=== PATIENT | male | born 1960 | race Caucasian/White ===

== ENCOUNTER → 2017-12-29 15:18 | Outpatient (CLI) | payer BC, SELFPAY ==
[2017-12-29 18:04] LABS: Absolute Lymphocyte Count 1.88 X10^3/ul (0.83-4.51); Absolute Neutrophil Count 2.8 X10^3/uL (2.0-7.7); Basophil# 0.07 X10^3/uL; Basophil% 1.2 % (0-1); Eosinophil# 0.46 X10^3/uL; Eosinophils% 8.1 % (0-5); Hematocrit 49.1 % (40-54); Lymphocyte # 1.88 X10^3/ul (4.0); Lymphocyte % 33.2 % (19-41); Mean Corp Hgb Conc 34.6 g/gl (32-36); Mean Corpuscular Hgb 31.5 pg (27.0-32.0); Mean Corpuscular Volume 91.1 fL (80-94); Mean Platelet Vol. 10.5 fl (6.2-12.0); Monocyte# 0.45 X10^3/uL; Neutrophil # 2.79 X10^3/uL (2.7-7.7); Neutrophil % 49.3 % (47-70); Platelet Count 140 K/mm3 (150-450); RBC Distribution Width SD 43.3 fl (35.1-43.9); Red Blood Count 5.39 M/mm3 (4.6-6.2); White Blood Count 5.7 K/mm3 (4.4-11.0)
[2017-12-29 18:22] LABS: Amphetamine Urine VISTA NEGATIVE (<1000 ng/mL); Barbiturate Urine VISTA NEGATIVE (< 200 ng/mL); Benzodiazepine Urine VISTA NEGATIVE (< 200 ng/mL); Cocaine Urine VISTA NEGATIVE (< 300 ng/mL); Ecstacy Urine VISTA NEGATIVE (< 500 ng/mL); Methadone Urine VISTA NEGATIVE (< 300 ng/mL); PCP Urine VISTA NEGATIVE (< 25 ng/mL); THC Urine VISTA NEGATIVE (< 50 ng/mL); Vista UDS pH Range 6
[2017-12-29 18:36] LABS: BUN 14 mg/dL (7-18); EST Glomerular Filtration Rate 82 mL/min (>60); Est Glom Filt Rate - Afr Amer 99 mL/min (>60); Glucose 139 mg/dL (74-106); Protein, Total 7.5 g/dL (6.4-8.2)
[2017-12-29 18:37] LABS: ALB/GLOB Ratio 1.2 RATIO (0.9-2.4); AST(SGOT) 24 U/L (15-37); Alanine Aminotransfer ALT/SGPT 52 U/L (16-61); Albumin, Serum 4.1 g/dL (3.2-5.0); Alkaline Phosphatase 57 U/L (45-117); Anion Gap 8 (5-15); Calcium,Total 8.9 mg/dL (8.5-10.1); Chloride 107 mmol/L (98-107); Cholesterol 220 mg/dL (200); Globulin 3.4 g/dL (2.2-4.2); High Density Lipoprotein 41 mg/dL; Potassium 4.1 mmol/L (3.5-5.1); Sodium Level 139 mmol/L (136-145); Triglycerides 256 mg/dL; Very Low Density Lipoprotein 51 mg/dL (5-40)
[2017-12-29 18:58] LABS: POSITIVE COUNT NO; POSITIVE DIFFERENTIAL NO; POSITIVE MORPHOLOGY NO
== END ==
PROVIDERS: Family Provider Family Medicine; PCP Family Medicine; Visit Provider Family Medicine
DX: I10 Essential (primary) hypertension (principal); E78.5 Hyperlipidemia, unspecified; Z51.81 Encounter for therapeutic drug level monitoring
CPT/HCPCS: 36415; 80053; 80061; 80307; 85025

== ENCOUNTER 2019-02-10 23:39 | Inpatient (IN) | payer BC, SELFPAY ==
[2019-02-10 23:40] VITALS: BP 219/205; PULSE 127; RESP 27; TEMP 37.1; O2SAT 92; BMI 36.5
[2019-02-10 23:45] VITALS: BP 219/205; PULSE 127; RESP 27; TEMP 37.1; O2SAT 92
[2019-02-10 23:48] VITALS: O2SAT 93
[2019-02-11] VITALS (73 sets, daily range): BP systolic 110–226; BP diastolic 43–128; PULSE 62–119; RESP 14–25; TEMP 36.7–37.2; O2SAT 89–99; BMI 34.8
--- NOTE | 2019-02-11 00:02 | EKG12_ITS ---
Test Reason : SOB Blood Pressure : / mmHG Vent. Rate : 112 BPM Atrial Rate : 112 BPM P-R Int : 142 ms QRS Dur : 096 ms QT Int : 364 ms P-R-T Axes : 025 -21 094 degrees QTc Int : 496 ms Sinus tachycardia Possible Left atrial enlargement Left ventricular hypertrophy Nonspecific ST/T Wave Abnormality Abnormal ECG Confirmed by DESHAWN GOEL, MANISHA ([id number]), sound editor FELIBERTO CHAND ([id number]) on 02/14/2019 2:06:10 PM Referred By: Marco Bro Confirmed By:MANISHA HESS MD
--- NOTE | 2019-02-11 00:08 | ED.VISSUMM ---
- ER Visit Summary Date of Service: 02/11/19 Chief Complaint: Shortness of breath History of Present Illness: The patient is a 58 M who presents with acute onset shortness of breath. This began about 1-2 hours before presentation while at rest. It severe. He also notes some recent cough with brown sputum. He has had some dyspnea on exertion. He quit smoking a few days ago. He has had some mild congestion runny nose although nothing bad. He denies any chest pain. He denies any edema. He has a history of elevated blood pressure but is noncompliant with medications because he states they make him feel dizzy. He denies fevers vomiting diarrhea. Physical Examination: Blood pressure 219/205, when repeated blood pressure 226/98, heart rate 127, respiratory rate 27, pulse ox 92% on room air Moist mucous membranes Heart regular tachycardia I do not appreciate murmur Patient has bilateral lower lung rales more so on the left, tachypneic with increased work of breathing Abdomen soft and nontender Patient has 2+ symmetric pitting edema Patient diaphoretic Test Results: EKG shows sinus rhythm at a rate of 112 when compared to prior there is slight ST depression in leads I and aVL as well as T wave inversions, T waves are flat from V4 through V6 which is also changed from prior. There are frequent PACs. Repeat EKG unchanged. Labs are notable for potassium 3.4, chloride 111. INR 1.1. Troponin 0 0.06, BNP 236. Chest x-ray shows CHF and pulmonary edema. Emergency Department Course and Treatment: Patient's presentation was concerning for acute congestive heart failure. He was given 3 sublingual nitroglycerin. He had significant improvement of symptoms. Blood pressure improved to about 180 systolic although is increasing again and most recent blood pressure was 200 systolic again. His laboratory studies as above showed minimal elevation of troponin as well as elevation of BNP and chest x-ray shows pulmonary edema. There is some asymmetry and pneumonia cannot be ruled out however his presentation is much more consistent with congestive heart failure. He has no fever. He has no leukocytosis. He reported pink sputum. Was given aspirin as well. He has been maintaining oxygen saturations on 4 L by nasal cannula. I spoke to Dr. Avila. He also recommended starting IV nitroglycerin, low-dose oral beta-kyle, IV heparin. Patient will be admitted to the ICU. I spoke to the hospitalist who agrees to admit. Treatment Plan: [] Disposition: Admit Impression: Acute congestive heart failure Hypertensive emergency This note was generated with teextee dictation software. It may contain incorrect words, spelling, and punctuation that were not noted in review of the chart prior to signing ED Disposition - Plan for ED Patient: Referrals: Marco Elizalde DO [Primary Care Provider] -
[2019-02-11 00:10] LABS: Absolute Lymphocyte Count 1.62 X10^3/ul (0.83-4.51); Absolute Neutrophil Count 5.5 X10^3/uL (2.0-7.7); Basophil# 0.05 X10^3/uL; Basophil% 0.6 % (0-1); Eosinophil# 0.35 X10^3/uL; Eosinophils% 4.4 % (0-5); Hematocrit 42.9 % (40-54); Hemoglobin 14.8 g/dl (13.0-16.5); Lymphocyte # 1.62 X10^3/ul (4.0); Lymphocyte % 20.4 % (19-41); Mean Corp Hgb Conc 34.5 g/gl (32-36); Mean Corpuscular Hgb 32.5 pg (27.0-32.0); Mean Corpuscular Volume 94.3 fL (80-94); Monocyte# 0.43 X10^3/uL; Monocyte% 5.4 % (0-10); Neutrophil % 69.1 % (47-70); POSITIVE COUNT NO; POSITIVE DIFFERENTIAL NO; POSITIVE MORPHOLOGY NO; Platelet Count 153 K/mm3 (150-450); RBC Distribution Width SD 45.4 fl (35.1-43.9); Red Blood Count 4.55 M/mm3 (4.6-6.2)
[2019-02-11] MEDS: Aspirin 81 MG TAB.CHEW 324 MG PO (00:13)
[2019-02-11 00:14] LABS: International Normalized Ratio 1.1; Prothrombin Time (Protime)PT. 13.8 SECONDS (11.7-14.9)
--- NOTE | 2019-02-11 00:15 | ED.RN ---
SPOKE WITH DR MAXWELL REFERENCE SEPSIS ALERT. NO CONCERNED FOR SEPSIS AT THIS TIME
--- NOTE | 2019-02-11 00:20 | RAD_ITS ---
STUDY: X-RAY CHEST REASON FOR EXAM: Male, 58 years old. Shortness of breath TECHNIQUE: Single frontal view of the chest. COMPARISON: None. FINDINGS: Cardiomegaly. Aortic calcifications. No pneumothorax or pleural effusion. Pulmonary vascular congestion/edema. There is asymmetric opacity within the left hilar and right lung base. There are diffuse degenerative changes of the visualized thoracic spine. Normal visualized ribs, clavicles, and shoulders. There is no demonstrated abnormality of the visualized soft tissue structures of the upper abdomen. RAD/Chest 1 View (Portable) IMPRESSION: Cardiomegaly with pulmonary vascular congestion/edema. There is asymmetric opacity within the right lung base and left suprahilar region. This could represent asymmetric edema however pneumonia cannot be excluded. Correlate with patient's symptomology follow-up to ensure resolution. Electronically Signed: Phil Fletcher, at 1:16 EDT Tel , Service support ,
[2019-02-11 00:23] LABS: Anion Gap 6 (5-15); BUN 11 mg/dL (7-18); BUN/Creat Ratio 10.8 RATIO (10-20); Calcium,Total 8.8 mg/dL (8.5-10.1); Chloride 111 mmol/L (98-107); Creatinine, Serum 1.02 mg/dL (0.70-1.30); EST Glomerular Filtration Rate 79 mL/min (>60); Est Glom Filt Rate - Afr Amer 96 mL/min (>60); Glucose 124 mg/dL (74-106); Potassium 3.4 mmol/L (3.5-5.1); Sodium Level 141 mmol/L (136-145)
--- NOTE | 2019-02-11 00:25 | EKG12_ITS ---
Test Reason : REPEAT Blood Pressure : / mmHG Vent. Rate : 111 BPM Atrial Rate : 111 BPM P-R Int : 134 ms QRS Dur : 084 ms QT Int : 364 ms P-R-T Axes : 022 -24 065 degrees QTc Int : 495 ms Sinus tachycardia with Premature atrial complexes Possible Left atrial enlargement Left ventricular hypertrophy Nonspecific ST/T Wave Abnormality Abnormal ECG Confirmed by DESHAWN GOEL, MANISHA ([id number]), news copy editor FELIBERTO CHAND ([id number]) on 02/14/2019 2:06:49 PM Referred By: Marco Bro Confirmed By:MANISHA HESS MD
[2019-02-11 00:36] LABS: BNP,B-Type NATRIURETIC PEPTIDE 236.2 pg/mL (0-100)
[2019-02-11] MEDS: Furosemide 40 MG/4 ML Vial IV ×4 (00:52→21:16)
--- NOTE | 2019-02-11 00:57 | ED.RN ---
DR HESS PAGED FOR DR MAXWELL
[2019-02-11] MEDS: Nitroglycerin Infusion 250 ML 3 MG CONT INF ×2 (02:06→18:45)
[2019-02-11 02:07] LABS: Partial Thromboplast Time 31.6 Seconds (24.1-36.2)
[2019-02-11] MEDS: Metoprolol Tartrate 25 MG Tablet PO ×2 (02:10→03:46)
[2019-02-11] MEDS: Heparin Injection (Vial) 5,000 UNIT/ML VIAL 10500 UNIT IV (02:11)
[2019-02-11] MEDS: HEPARIN/D5w 25,000 UNITS 25,000 UNITS/250 ML IV.SOLN. 17 UNITS IV (02:14)
--- NOTE | 2019-02-11 02:27 | HP.PCM_ITS ---
Problem List (1) Shortness of breath Status: Acute History of Present Illness Date of Admission: 02/11/19 Chief Complaint: Shortness of breath The patient is a 58 year old M was seen in the emergency room at [facility] with chief complaint of shortness of breath which started approximately a week ago, patient stopped smoking last Thursday thinking it was related to his smoking, however, his shortness of breath increased last night and he came to the emergency room for evaluation. Patient's past medical history includes hypertension-he stopped his blood pressure medications several months ago. He states initially he was on lisinopril but became dizzy and then they change his blood pressure medicine to another blood pressure medication but he eventually stopped taking it. Patient denies any chest pain, denies any fevers, chills, or purulent sputum production (patient states he chronically brings up brown sputum due to his smoking). Evaluation in the emergency room included a chest x-ray which showed bilateral infiltrates indicative of pulmonary edema given the patient's history. Patient required oxygen 2 L via nasal cannula to maintain his pulse ox above 90, CBC revealed a normal white blood cell count and hemoglobin, chemistry panel was remarkable for potassium of 3.4, chloride of 111, and glucose of 124. Patient's troponin was elevated at 0.066, beta natruretic peptide was elevated at 236.2. Patient's EKG showed a normal sinus rhythm with frequent PACs, no evidence of ischemic changes was noted on the EKG The emergency room physician contacted cardiology who requested the patient receive a beta-kyle, IV heparin, and IV nitroglycerin. Patient will be admitted to ICU for hypertensive emergency, hypoxia, pulmonary edema, and non- STEMI. 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 Psychiatric History: No pertinent psych hx Lives: Alone Smoking Status: Former smoker Tobacco Use: Cigarettes Alcohol: Rare Drugs: None - *Family History Maternal History Items: Cancer - Lymphoma Paternal History Items: - - Congestive heart failure-etiology unknown Review of Systems Constitutional: Denies: Anorexia, Chills, Fever, Night Sweats, Malaise, Weakness, Weight Change, Fatigue Eyes: Denies: Cataracts, Conjunctivae Inflammation, Double vision, Drainage HEENT: Denies: Difficulty Swallowing, Dysphasia, Ear Pain, Eye Pain, Hearing Changes, Nasal bleeding, Nasal Congestion, Post Nasal Drip Cardiovascular: Denies: Chest Pain, Claudication, Chest Pressure, Chest Tightness, Edema, Heaviness, Light Headedness, Orthopnea, Palpitations, Paroxysmal Noc. Dyspnea, Syncope Respiratory: Reports: Shortness of Breath, Shortness of breath at rest, Shortness of breath upon exertion, Sputum production. Denies: Cough, Hemoptysis, Pleuritic Pain, Wheezing Gastrointestinal: Denies: Abdominal Pain, Constipation, Diarrhea, Hematemesis, Hematochezia, Nausea, Melena, Vomiting Genitourinary: Denies: Dysuria, Frequency, Hematuria, Hesitancy, Incontinence, Nocturia, Urgency Musculoskeletal: Denies: Back Pain, Foot Pain, Hand Pain, Joint Pain, Joint stiffness, Joint swelling, Joint Tenderness, Leg Pain Skin: Denies: Dryness, Jaundice, Pruritis, Rash, Wounds Neurological: Denies: Blurred vision, Double vision, Change in Speech, Slurred speech, Difficulty swallowing, Focal weakness, Headaches, Incoordination, Numbness, Tingling Psychiatric: Denies: Anxiety, Depression, Homicidal Ideations, Suicidal Ideations Endocrine: Denies: Change in Body Habitus, Heat/ Cold Intolerance, Polydipsia, Polyuria Hematologic/ Lymphatic: Denies: Adenopathy, Anemia, Easy Bruising, Easy Bleeding, Petechiae, Purpura VTE Information - Inpt Only VTE Present on Admission: No VTE Mechan Device Prophylaxis: None VTE Pharm Prophylaxis ordered?: No Reason prophylaxis not ordered:: Medical Contraindication - Patient will be fully anticoagulated with IV heparin Patient Problems: Active and Suspected Problems Shortness of breath (Acute) - Physical Exam General: Alert, Oriented x3, Cooperative, No apparent distress, Well developed, Well nourished HEENT: Atraumatic, PERRLA, EOMI, Normocephalic Oral: Moist Mucosa Neck: Supple, No JVD, Negative Carotid Bruits, No Nuchal Rigidity, Trachea Midline, Thyroid Normal Size and Texture Lungs: Normal air movement, No rhonchi, No wheeze, Diminished, Rales - Inspiratory rales are noted at the bases bilaterally Cardiovascular: Normal S1, Normal S2, No murmurs, PMI Normal, Irregular Rate - PACs are noted on the monitor, - - Frequent PACs are noted Abdomen: Bowel Sounds Present, Soft, Non Tender, Non-Distended, Obese Extremities: No clubbing, No cyanosis, Capillary Refill Less than 3 Seconds, Edema - Generalized edema is noted in the lower legs and ankle areas, there is also some generalized edema over the patient's back Skin: No rashes, No breakdown Musculoskeletal: No Tenderness to Palpation of Joints or Extremities Neurological: Cranial nerves II-XII grossly intact, Neuro grossly intact, Sensory exam intact to light touch and pain, Coordination normal Psych/Mental Status: Normal Affect, Appropriate, Alert and oriented to time, place, person, mood and affect Vital Signs Temp Pulse Resp BP Pulse Ox 98.7 F 98 27 H 185/90 H 90 02/10/19 23:45 02/11/19 02:06 02/10/19 23:45 02/11/19 02:06 02/11/19 00:05 Oxygen Flow Rate (L/min) 2 Oxygen Delivery Method Nasal Cannula Weight: 132.5 kg Body Mass Index (BMI) 36.5 Intake and Output for Last 24 Hours 02/09/19 02/10/19 02/11/19 23:59 23:59 23:59 Output Total 600 / 600 Balance -600 / -600 Laboratory Tests Past 24 Hrs 02/10/19 02/10/19 02/10/19 23:45 23:45 23:45 WBC 8.0 RBC 4.55 L Hgb 14.8 Hct 42.9 MCV 94.3 H MCH 32.5 H MCHC 34.5 RDW 14.0 RDW Differential 45.4 H Plt Count 153 MPV 10.0 Immature Gran % (Auto) 0.100 Neut % (Auto) 69.1 Lymph % (Auto) 20.4 [place] % (Auto) 5.4 Eos % (Auto) 4.4 Baso % (Auto) 0.6 Absolute Neuts (auto) 5.5 Absolute Lymphs (auto) 1.62 Total Counted Not Reportable PT 13.8 INR 1.1 APTT Sodium 141 Potassium 3.4 L Chloride 111 H Carbon Dioxide 24.0 Anion Gap 6 BUN 11 Creatinine 1.02 Estim Creat Clear Calc 93.20 Est GFR (MDRD) Af Amer 96 Est GFR (MDRD) Non-Af 79 BUN/Creatinine Ratio 10.8 Glucose 124 H Calcium 8.8 Troponin I 0.066 H B-Natriuretic Peptide 02/10/19 02/10/19 23:45 23:45 WBC RBC Hgb Hct MCV MCH MCHC RDW RDW Differential Plt Count MPV Immature Gran % (Auto) Neut % (Auto) Lymph % (Auto) [place] % (Auto) Eos % (Auto) Baso % (Auto) Absolute Neuts (auto) Absolute Lymphs (auto) Total Counted PT INR APTT 31.6 Sodium Potassium Chloride Carbon Dioxide Anion Gap BUN Creatinine Estim Creat Clear Calc Est GFR (MDRD) Af Amer Est GFR (MDRD) Non-Af BUN/Creatinine Ratio Glucose Calcium Troponin I B-Natriuretic Peptide 236.2 H Assessment/Plan All Active Problems Shortness of breath (Acute) #1 hypertensive emergency-patient will be admitted to ICU, he will be seen in consultation by cardiology, blood pressure medications will be administered, cardiology request patient be placed on a nitroglycerin drip #2 pulmonary edema secondary to #1-patient will be placed on IV Lasix #3 uncontrolled hypertension secondary to noncompliance with medications #4 [id number] will be cycled, patient will have an echocardiogram, cardiology requested patient be placed on heparin drip #5 hypokalemia-patient will be placed on potassium supplementation #6 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
--- NOTE | 2019-02-11 02:36 | ECHOCS_ITS ---
Reason For Study: CHF Procedure This was a 2D Doppler, Color Flow transthoracic echocardiogram. The study was technically difficult. Contrast injection was performed. Exam performed portable in ICU/CCU. Left Ventricle Normal LV size. Moderate concentric left ventricular hypertrophy. Left ventricular systolic function is normal. The estimated ejection fraction is 60 %. Diastolic function is indeterminate. No regional wall motion abnormalities noted. Right Ventricle Normal RV size. Normal systolic function. Atria The left atrium is mildly enlarged. Normal right atrium. No doppler evidence for ASD. Mitral Valve There is no mitral annular calcification. Normal mitral valve. Trivial mitral valve insufficiency. Tricuspid Valve Normal tricuspid valve. Trivial tricuspid valve insufficiency. Right ventricular systolic pressure estimated to be 21 mmHg. Aortic Valve Trisinus/trileaflet aortic valve. Moderate focal aortic valve calcification. Mild (1+) eccentric aortic valve insufficiency. Pulmonic Valve The pulmonic valve is not well visualized. Trivial pulmonic valve insufficiency. Great Vessels Normal sized aortic root. Pericardium/Pleural No pericardial effusion. Medication Diluted definity 5.5ml given slow IV push to enhance endocardial definition. MMode/2D Measurements & Calculations LVIDd: 5.0 cm IVSd: 1.5 cm LVOT diam: 2.5 cm LVIDs: 3.2 cm LVPWd: 1.6 cm FS: 36.4 % LVOT area: 5.1 cm2 Ao root diam: 3.8 cm LAV(MOD-bp): 83.1 ml LA A4 area: 23.9 cm2 LAV(MOD-bp) Indexed: 32.9 ml/m2 LAV(MOD-sp2): 86.0 ml LAV(MOD-sp4): 80.6 ml RA A4 area: 16.4 cm2 Time Measurements MV dec time: 0.25 sec Doppler Measurements & Calculations MV E max connor: 90.9 cm/sec Lat Peak E' Connor: 7.2 cm/sec Med Peak E' Connor: 5.5 cm/sec MV A max connor: 68.5 cm/sec E/E' lat: 12.7 E/E' med: 16.6 MV E/A: 1.3 MV V2 max: 96.4 cm/sec MV P1/2t max connor: 95.8 cm/sec Ao V2 max: 233.3 cm/sec MV max P.7 mmHg MV P1/2t: 78.3 msec Ao max P.8 mmHg MV V2 mean: 64.0 cm/sec MV dec slope: 358.2 cm/sec2 Ao V2 mean: 155.8 cm/sec MV mean P.8 mmHg Ao mean P.1 mmHg MV V2 VTI: 24.7 cm MVA(P1/2t): 2.8 cm2 Ao V2 VTI: 39.9 cm MVA(VTI): 3.9 cm2 CONG(I,D): 2.4 cm2 OCNG(V,D): 2.0 cm2 LV V1 max: 92.4 cm/sec SV(LVOT): 95.9 ml PA V2 max: 83.8 cm/sec LV V1 max P.4 mmHg LV V1 mean P.9 mmHg LV V1 mean: 65.0 cm/sec LV V1 VTI: 18.9 cm TR max connor: 212.9 cm/sec TR max P.1 mmHg Interpretation Summary The study was technically difficult. Contrast injection was performed. Left ventricular systolic function is normal. The estimated ejection fraction is 60 %. Moderate concentric left ventricular hypertrophy. The left atrium is mildly enlarged. Trivial mitral valve insufficiency. Trivial tricuspid valve insufficiency. Moderate focal aortic valve calcification. Mild (1+) eccentric aortic valve insufficiency. Trivial pulmonic valve insufficiency. Right ventricular systolic pressure estimated to be 21 mmHg. Diastolic function is indeterminate. Ordering Physician: Marco Bro Referring Physician: Marco Bro Performed By: Chuck Pierson RCS
[2019-02-11] MEDS: Losartan Potassium 25 MG Tablet PO (03:46)
[2019-02-11] MEDS: oxyCODONE 5 MG Tablet 10 MG PO ×4 (03:49→22:47)
[2019-02-11] MEDS: 0.9% NaCl Peripheral Flush Adult/Peds IV ×2 (05:35→07:52)
[2019-02-11 06:09] LABS: Absolute Lymphocyte Count 1.77 X10^3/ul (0.83-4.51); Absolute Neutrophil Count 5.8 X10^3/uL (2.0-7.7); Basophil# 0.03 X10^3/uL; Basophil% 0.4 % (0-1); Eosinophil# 0.18 X10^3/uL; Eosinophils% 2.2 % (0-5); Hematocrit 44.6 % (40-54); Hemoglobin 15.4 g/dl (13.0-16.5); Lymphocyte # 1.77 X10^3/ul (4.0); Lymphocyte % 21.7 % (19-41); Mean Corp Hgb Conc 34.5 g/gl (32-36); Mean Corpuscular Hgb 32.2 pg (27.0-32.0); Mean Corpuscular Volume 93.1 fL (80-94); Mean Platelet Vol. 9.8 fl (6.2-12.0); Monocyte# 0.41 X10^3/uL; Neutrophil # 5.75 X10^3/uL (2.7-7.7); Neutrophil % 70.5 % (47-70); Platelet Count 177 K/mm3 (150-450); RBC Distribution Width CV 13.9 % (11.6-14.6); RBC Distribution Width SD 45.4 fl (35.1-43.9); Red Blood Count 4.79 M/mm3 (4.6-6.2); White Blood Count 8.2 K/mm3 (4.4-11.0)
--- NOTE | 2019-02-11 06:10 | EKG12_ITS ---
Test Reason : AM Blood Pressure : / mmHG Vent. Rate : 078 BPM Atrial Rate : 078 BPM P-R Int : 144 ms QRS Dur : 092 ms QT Int : 514 ms P-R-T Axes : 033 -17 126 degrees QTc Int : 585 ms Sinus rhythm with Blocked Premature atrial complexes Left ventricular hypertrophy T wave abnormality, consider anterolateral ischemia Prolonged QT Abnormal ECG Confirmed by DESHAWN GOEL, MANISHA ([id number]), electronic news gathering editor FELIBERTO CHAND ([id number]) on 02/21/2019 12:08:08 PM Referred By: Marco Bro Confirmed By:MANISHA HESS MD
[2019-02-11 06:20] LABS: POSITIVE COUNT NO; POSITIVE DIFFERENTIAL NO; POSITIVE MORPHOLOGY NO
--- NOTE | 2019-02-11 06:44 | RAD_ITS ---
STUDY: X-RAY CHEST REASON FOR EXAM: Male, 58 years old. Shortness of breath/dyspnea. TECHNIQUE: Single AP portable view of the chest. COMPARISON: Comparison is made with prior study dated February 11, 2019 at 12:24 AM. FINDINGS: EKG electrodes are seen. There is been some clearing of the bilateral airspace disease. Residual changes persist. There is no demonstrated pleural abnormality. There is mild cardiac enlargement. Normal mediastinum and german. Normal visualized pulmonary arteries. There is atherosclerotic calcification of the aortic arch with tortuosity. There are diffuse degenerative changes of the visualized thoracic spine. Normal visualized ribs, clavicles, and shoulders. There is no demonstrated abnormality of the visualized soft tissue structures of the upper abdomen. RAD/Chest 1 View (Portable) IMPRESSION: Improved aeration of both lungs. Further follow-up is recommended. Electronically Signed: Gilberto Lund, at 8:18 EDT , Service support ,
--- NOTE | 2019-02-11 06:45 | PCM.PN.HOSP ---
Patient Problems: Active and Suspected Problems Shortness of breath (Acute) Hypertensive emergency (Acute) Pulmonary edema (Acute) Abnormal cardiac enzyme level (Acute) Subjective: Patient notes feeling improved since initial presentation with less dyspnea, less coughing but does have a headache with nitroglycerin. His blood pressures on current regimen have improved. Cardiology evaluation with planned cardiac catheterization and pending renal ultrasound. Again discussed these plans of care and current plan for continued diuresis to which patient is amenable. He reconfirmed that he has had no chest discomfort, arm discomfort, shoulder discomfort or jaw discomfort. Patient denies fevers, chills, nausea, emesis, abdominal pain. Objective: Physical Examination: General: awake, alert, oriented x 3 and cooperative, seated upright in the CVICU bed, notes being improved since initial presentation, mild dyspnea currently but not severe as it was. Skin: normal color, turgor, no icterus, cyanosis. HEENT: AT/NC, EOMI, PERRLA, MMM, no carotid bruits, currently difficult to assess JVD secondary to thickened neck. Lungs: Diminished breath sounds, greater bases, still mild rales present bases, no rhonchi or wheezing. Heart: Regular rate and rhythm; no gallop, rub audible. Abdomen: soft, obese, NTTP, ND, normal BS. Extremities: no cyanosis, clubbing, bilateral lower extremity ankle nonpitting edema. Neurological: patient awake, alert, oriented x 3; cognitive function intact; pupils equally reactive to light and accomodation; cranial nerves II-XII grossly normal, moving all 4 extremities, no focal deficits, strength moderately to severely globally decreased secondary to acute presentation. Psychiatric: affect appears normal, no acute evidence of depressive or anxiety feelings. Vitals/I&O's: Vital Signs Temp Pulse Resp BP Pulse Ox 98.1 F 90 20 H 201/100 H 93 02/11/19 02:50 02/11/19 06:30 02/11/19 06:00 02/11/19 06:30 02/11/19 06:00 Oxygen Flow Rate (L/min) 2 Oxygen Delivery Method Room Air Weight: 278 lb 10.629 oz Body Mass Index (BMI) 34.8 Intake and Output for Last 24 Hours 02/09/19 02/10/19 02/11/19 23:59 23:59 23:59 Intake Total 114.6 / 114.6 Output Total 1525 / 1525 Balance -1410.4 / -1410.4 Laboratory Results 02/10/19 23:45: WBC 8.0, RBC 4.55 L, Hgb 14.8, Hct 42.9, MCV 94.3 H, MCH 32.5 H, MCHC 34.5, RDW 14.0, RDW Differential 45.4 H, Plt Count 153, MPV 10.0, Immature Gran % (Auto) 0.100, Neut % (Auto) 69.1, Lymph % (Auto) 20.4, [place] % (Auto) 5.4, Eos % (Auto) 4.4, Baso % (Auto) 0.6, Absolute Neuts (auto) 5.5, Absolute Lymphs (auto) 1.62, Total Counted Not Reportable 02/10/19 23:45: PT 13.8, INR 1.1 02/10/19 23:45: Sodium 141, Potassium 3.4 L, Chloride 111 H, Carbon Dioxide 24.0, Anion Gap 6, BUN 11, Creatinine 1.02, Estim Creat Clear Calc 93.20, Est GFR (MDRD) Af Amer 96, Est GFR (MDRD) Non-Af 79, BUN/Creatinine Ratio 10.8, Glucose 124 H, Calcium 8.8, Troponin I 0.066 H 02/10/19 23:45: B-Natriuretic Peptide 236.2 H 02/10/19 23:45: APTT 31.6 02/11/19 03:15: Troponin I 0.117 H 02/11/19 06:00: Troponin I 0.111 H 02/11/19 06:00: WBC 8.2, RBC 4.79, Hgb 15.4, Hct 44.6, MCV 93.1, MCH 32.2 H, MCHC 34.5, RDW 13.9, RDW Differential 45.4 H, Plt Count 177, MPV 9.8, Immature Gran % (Auto) 0.200, Neut % (Auto) 70.5 H, Lymph % (Auto) 21.7, [place] % (Auto) 5.0, Eos % (Auto) 2.2, Baso % (Auto) 0.4, Absolute Neuts (auto) 5.8, Absolute Lymphs (auto) 1.77, Total Counted Not Reportable Current Medications Furosemide (Lasix) 40 mg IV Q8 VIDYA Last Admin: 02/11/19 05:35 Dose: 40 mg Heparin Sodium (Porcine) (Heparin Na) 0 unit IV UD PRN; Protocol Heparin Sodium/Dextrose () 25,000 units in 250 mls @ 17 mls/hr IV .[id number] VIDYA; Protocol Last Admin: 02/11/19 02:14 Dose: 17 mls/hr Sodium Chloride () 250 mls @ 15 mls/hr IV .[id number] PRN PRN Reason: SALINE FLUSH Nitroglycerin/Dextrose () 250 mls @ 3 mls/hr CONT INF .[id number] [facility] Losartan Potassium (Cozaar) 50 mg PO BID [facility] Metoprolol Tartrate (Lopressor (Beta Sourav)) 50 mg PO BID VIDYA Nitroglycerin (Nitrostat) 0.4 mg SUBLINGUAL PRN PRN PRN Reason: CARDIAC/CHEST PAIN Last Admin: 02/11/19 00:16 Dose: 0.4 mg Oxycodone HCl (Oxyir) 10 mg PO Q6H PRN PRN PRN Reason: SEVERE PAIN (6-10/10) Last Admin: 02/11/19 03:49 Dose: 10 mg Potassium [facility]Dur[facility] Sodium Chloride () 5 - 15 ml IV UD PRN PRN Reason: SALINE FLUSH Last Admin: 02/11/19 05:35 Dose: 15 ml Medical Necessity - Tobacco Use Smoking Status: Former smoker Tobacco Use: Cigarettes Assessment/Plan All Active Problems Shortness of breath (Acute) Hypertensive emergency (Acute) Pulmonary edema (Acute) Abnormal cardiac enzyme level (Acute) The patient is a 58 y/o M w/ PMHx: Tobacco use recently quitting, Obesity who presents to the [facility] ED on 02/11/19 with history of ongoing dyspnea, progressively worsening over the last week, severely and abruptly increase the evening before prompting ED presentation with notably concurrent elevated blood pressure upon ED presentation. (1) Hypertensive Emergency: Work-up in the ED included T 98.7, heart rate 127, BP 219/25, respiratory rate 27, 92% on room air, unremarkable CBC, unremarkable coags, BMP with potassium 3.4, chloride 111, glucose 124, troponin 0.066, BNP 236.2, EKG with no acute evidence of ischemia, chest x-ray with cardiomegaly with pulmonary vascular congestion. The ED patient administered IV Lasix and initiated on nitroglycerin drip per cardiology request. Admitted to the ICU, maintain on IV diuresis, continued on nitroglycerin drip with titration parameters per cardiology, maintain on heparin drip, cardiac enzymes trended v0.066-->0.117-->0.111, serial EKGs, FLP w/ TG 134, TChol 174, LDL 108, VLDL 27, HDL 39, Renal artery duplex US requested, ECHO requested. Continued on metoprolol, losartan. (2) Pulmonary Edema secondary to #1: Chest x-ray with cardiomegaly and pulmonary vascular congestion secondary to hypertensive emergency presentation, repeat chest x-ray following IV diuresis overnight with improved aeration, continued on IV Lasix diuresis. Echocardiogram pending. (3) NSTEMI: ED evaluation w/ troponin 0.066, BNP 236.2, EKG with no acute evidence of ischemia, chest x-ray with cardiomegaly with pulmonary vascular congestion. Continued on telemetry, continued on nitroglycerin drip with titration parameters per cardiology, maintained on heparin drip, cardiac enzymes trended v0.066-->0.117-->0.111, serial EKGs, FLP w/ TG 134, TChol 174, LDL 108, VLDL 27, HDL 39, planned cardiac catheterization, ECHO requested. Patient loaded with ASA, Brilinta, maintained on initiated metoprolol, losartan. (3) Hypokalemia: Admission K+ 3.4, supplementation given, repeat level in AM. (4) Hyperglycemia: Glucose 124, will obtain hemoglobin A1c. (5) Obesity: Weight loss and lifestyle changes encouraged, nutrition consulted. (6) Tobacco Abuse: Encouraged cessation, inpatient consultation per RT, NR if desired. (&) DVT Prophylaxis: SCDs, heparin drip. Code Visit Procedures: Other Procedure - See Report - Admitted after midnight, billin
[2019-02-11 07:02] LABS: Magnesium 1.9 mg/dL (1.6-2.6)
[2019-02-11 07:06] LABS: Cholesterol 174 mg/dL (200); High Density Lipoprotein 39 mg/dL; Triglycerides 134 mg/dL; Very Low Density Lipoprotein 27 mg/dL (5-40)
[2019-02-11] MEDS: Metoprolol Tartrate 50 MG Tablet PO ×2 (07:51→21:17)
[2019-02-11] MEDS: Losartan Potassium 50 MG Tablet PO ×2 (07:51→21:16)
--- NOTE | 2019-02-11 08:03 | RDU_ITS ---
Reason For Study: HTN Right Renal Artery Left Renal Artery Right renal artery ostium 152/38 Left renal artery ostium 132/30 RSV/EDV. PSV/EDV. Right renal artery proximal 241/65 Left renal artery proximal PSV/EDV PSV/EDV. 138/22 . Right renal artery mid 293/65 Left renal artery mid 110/32 PSV/EDV. PSV/EDV . Right renal artery distal 87/25 Left renal artery distal 84/21 PSV/EDV. PSV/EDV. Right RAR 4.31. Left RAR 2.03. Right Renal Parenchyma Left Renal Parenchyma Upper Pole Medula 29/8 PSV/EDV. Left upper pole medulla 58/17 Right upper pole medulla EDR 0.28 . PSV/EDV . Right upper pole medulla R.I. Left upper pole medulla EDR 0.29 . 0.72 . Left upper pole medulla R.I. 0.71 . Upper Kaveh Cortx 25/5 PSV/EDV. UP Cortex 36/9 PSV/EDV. Right upper pole cortex EDR 0.20 . Left upper pole cortex EDR 0.25 . Right upper pole cortex R.I. 0.80 . Left upper pole cortex R.I. 0.75 . Right lower Pole medulla 30/9 Left lower Pole medulla 33/7 PSV/EDV . PSV/EDV . Right lower pole medulla EDR 0.30 . Left lower pole medulla EDR 0.21 . Right lower pole medulla R.I. Left lower pole medulla R.I. 0.79 . 0.68 . Lower Pole Cortx 26/8 PSV/EDV. Lower Pole Cortex 25/8 PSV/EDV. Left lower pole cortex EDR 0.31 . Right lower pole cortex EDR 0.32 . Left lower pole cortex R.I. 0.69 . Right lower pole cortex R.I. 0.70 . Left Renal Hilar Right Renal Hilar LT Hilar avg 62/15 PSV/EDV . Right Hilar avg 92/23 PSV/EDV. Left Renal Dimensions Right Renal Dimensions Left kidney size 13.0 cm . Right kidney size 13.90 cm . Left cortical dimension 1.73 cm . Right cortical dimension 1.64 cm . Aorta Proximal abdominal aorta 2.02cmx 2.23 cm . Proximal abdominal aorta peak systolic velocity is 68 cm/sec . Distal abdominal aorta 1.66cm x 1.80 cm . Distal abdominal aorta peak systolic velocity is 130 cm/sec . Procedures Technically difficult due to bowel gas. Interpretation Summary Normal aortic diameter 2 x 2.23cm and normal flow >60% stenosis right proximal/mid renal artery. Right renal length 13.9cm <60% stenosis left renal artery Left renal length 13cm Ordering Physician: Nickolas Avila Referring Physician: Marco Elizalde Performed By: Nena Jacobsen, DENNIS, RVT
--- NOTE | 2019-02-11 08:07 | PCM.CONS.C ---
Problem List (1) Hypertensive emergency Status: Acute (2) Pulmonary edema Status: Acute (3) Abnormal cardiac enzyme level Status: Acute Reason for Consult Date of Consultation: 02/11/19 History of Present Illness: The patient is a 58 year old male with a past medical history of hypertension, hyperlipidemia, who presents for evaluation of a hypertensive urgency/emergency, pulmonary edema, and subsequent abnormal cardiac enzyme levels. He states he has been diagnosed with hypertension in the past. He has attempted different medications 1 of which is included an LUIS ANGEL inhibitor/HCTZ combination agent which he did not tolerate secondary to dizziness . He states he was tried on another agent which he believes he may have tolerated but due to financial reasons could not afford. He subsequently discontinued his medications. Thus his hypertension has been untreated. He believes he is also been diagnosed with hyperlipidemia but does not recall being on medical management. He does not recall any other cardiovascular history. He notes recently he has been more short of breath and dyspneic. He states yesterday evening it became very prominent and he could not lie supine and breathe comfortably. Thus he summoned the EMS to be brought to the hospital for further evaluation. In the emergency department, according to the emergency department staff, he was thought to have evidence of a hypertensive urgency/emergency with associated pulmonary edema. He was treated with nitroglycerin sublingual tablets as well as IV diuretics. He was subsequently evaluated and found to have indeterminate troponin I levels. An ECG was performed that demonstrated sinus rhythm. He appeared to have PACs. There was possible left atrial enlargement. There was voltage criteria for LVH based upon lead aVL. He had nonspecific ST and T wave abnormality. A chest x-ray was performed which suggested findings compatible with pulmonary edema. He was subsequently placed in the ICU where he was receiving IV nitroglycerin and IV heparin as well as other oral agents such as aspirin, beta-blockers, and ARB's. He has remained hypertensive. He has had increased diuresis. He states his breathing has markedly improved. He has gone from requiring O2 nasal cannula supplements to being on room air. A follow-up chest x-ray has been performed which demonstrated improvement in his pulmonary edema. Additional noninvasive studies are pending at this time. He does note a sensation of chest discomfort that went along with his shortness of breath and dyspnea. He has not had nausea, emesis, or diaphoresis. Is been no report of near syncope or syncope. He states he was unaware he had any lower extremity peripheral pitting edema until he was informed by the emergency department staff. 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 Denies: PND, Palpitations, Lightheadedness, Dizziness, Near Syncope, Syncope Respiratory: Reports: Shortness of Breath. Denies: Cough, Sputum Production, Hemoptysis Gastrointestinal: Denies: Hematemesis, Hematochezia, Melena Genitourinary: Denies: Dysuria, Hematuria Skin: Denies: Rash Subjectve: Is a 58-year-old white male who appears to be resting comfortably at the moment in no acute distress. Objective: Vital Signs Temp Pulse Resp BP Pulse Ox 98.6 F 83 18 159/79 H 94 02/11/19 07:45 02/11/19 08:00 02/11/19 08:00 02/11/19 08:00 02/11/19 08:00 Oxygen Flow Rate (L/min) 2 Oxygen Delivery Method Room Air Weight: 278 lb 10.629 oz Body Mass Index (BMI) 34.8 Intake and Output for Last 24 Hours 02/09/19 02/10/19 02/11/19 23:59 23:59 23:59 Intake Total 114.6 / 114.6 Output Total 1525 / 1525 Balance -1410.4 / -1410.4 General: Awake, Alert, Oriented x 3, Cooperative, No Acute Distress HEENT: Atraumatic, Normocephalic, PERRL, EOMI, Sclera Non Icteric Oral: Moist Mucosa Neck: Supple, Good ROM, No JVD Lungs: Diminished Fernando Bases Cardiovascular: Regular Rhythm, Premature Ectopic Beats, Normal S1, Normal S2 Vascular: No Carotid Bruits Abdomen: Bowel Sounds Present, Soft, Non Tender Extremities: Trace RLE Edema, Trace LLE Edema Neurological: No Focal Motor or Sensory Deficit Psych/Mental Status: Appropriate 02/10/19 23:45: WBC 8.0, RBC 4.55 L, Hgb 14.8, Hct 42.9, MCV 94.3 H, MCH 32.5 H, MCHC 34.5, RDW 14.0, RDW Differential 45.4 H, Plt Count 153, MPV 10.0, Immature Gran % (Auto) 0.100, Neut % (Auto) 69.1, Lymph % (Auto) 20.4, [place] % (Auto) 5.4, Eos % (Auto) 4.4, Baso % (Auto) 0.6, Absolute Neuts (auto) 5.5, Total Counted Not Reportable 02/10/19 23:45: PT 13.8, INR 1.1 02/10/19 23:45: Sodium 141, Potassium 3.4 L, Chloride 111 H, Carbon Dioxide 24.0, Anion Gap 6, BUN 11, Creatinine 1.02, Est GFR (MDRD) Af Amer 96, Est GFR (MDRD) Non-Af 79, BUN/Creatinine Ratio 10.8, Glucose 124 H, Calcium 8.8, Troponin I 0.066 H 02/10/19 23:45: B-Natriuretic Peptide 236.2 H 02/10/19 23:45: APTT 31.6 02/11/19 03:15: Troponin I 0.117 H 02/11/19 06:00: Troponin I 0.111 H 02/11/19 06:00: WBC 8.2, RBC 4.79, Hgb 15.4, Hct 44.6, MCV 93.1, MCH 32.2 H, MCHC 34.5, RDW 13.9, RDW Differential 45.4 H, Plt Count 177, MPV 9.8, Immature Gran % (Auto) 0.200, Neut % (Auto) 70.5 H, Lymph % (Auto) 21.7, [place] % (Auto) 5.0, Eos % (Auto) 2.2, Baso % (Auto) 0.4, Absolute Neuts (auto) 5.8, Total Counted Not Reportable 02/11/19 06:00: Triglycerides 134, Cholesterol 174, LDL Cholesterol 108, VLDL Cholesterol 27, HDL Cholesterol 39 L 02/11/19 06:00: Magnesium 1.9 Rhythm: Sinus rhythm; PACs EKG: As noted above ECHO: Pending CXR: As noted above Assessment/Plan 1. Hypertensive urgency/emergency The patient appears to be symptomatically improved compared to his emergency department presentation. His blood pressure remains elevated. He continues with IV nitroglycerin at this time while oral antihypertensive agents are initiated. Hopefully over time his blood pressure will improve and his IV nitroglycerin can be decreased and discontinued. He will continue evaluation for his hypertension. It would not be unreasonable based upon his history to evaluate him for any obvious secondary issues. This could include any concerns of renal artery involvement. Thus would be reasonable to perform a renal artery duplex study to screen for any obvious renal artery involvement. An echocardiogram has also been requested to evaluate his left ventricular wall motion, thickness, and overall systolic function. 2. Pulmonary edema The patient was noted to have concerns of shortness of breath/dyspnea, require O2 nasal cannula, and have examination findings and chest x-ray findings compatible pulmonary edema. This may be secondary to his hypertensive urgency/emergency. Thus he has been treated for his underlying hypertension. He is also been treated for his pulmonary edema with IV diuretic therapy. He has had increased diuresis. His symptoms and examination have improved. He is now on room air. His follow-up chest x-ray demonstrates improvement as well. He will continue his evaluation. This will include a noninvasive study with an echocardiogram to evaluate his left ventricular wall motion and thickness and overall systolic function. He will continue medical management in the interim. 3. Abnormal cardiac enzymes His cardiac enzymes are indeterminate. This may be a secondary event based upon his hypertensive urgency/emergency. However the same time he does have cardiovascular risk factors. Thus underlying CAD is not necessarily been excluded. As his clinical course progresses he should be considered for further evaluation for underlying CAD. Based upon his clinical scenario this would include diagnostic cardiac catheterization. Procedure risks have been discussed with him. He is agreeable to this approach. Comment: The patient's case has been previously discussed and reviewed with the [facility] emergency department staff. This note was generated with HEMINGWAYation software. It may contain incorrect words, spelling, and punctuation that were not noted in checking the note before signing.
--- NOTE | 2019-02-11 09:28 | CASEMGMT ---
Assessment- SW met with patient. Introduced self and role at [facility]. Patient in agreement with SW completing assessment. Living situation- Patient lives alone in a 2- story home with a few entry steps. PCP: Dr Marco Elizalde Specialists: None Pharmacy: [facility] DME: [facility]. Has an old CPAP that he does not use ADL's/IADL's: Independent in all adl?s Past SNF/rehab: None Past HH: None LW: No. But would like to do this visit POA: No. But would like to do this visit Plan: Patient plans on returning home at d/c with no needs. He wants to talk with his family before completing HCPOA and HCLW. SW told him to ask for SW and we can help him complete documents. Ilene COYLE TROMBONE SLIDE ASSEMBLER
[2019-02-11 10:01] LABS: Hemoglobin A1c 5.4 % (4.2-6.3)
--- NOTE | 2019-02-11 10:04 | CASEMGMT ---
According to the [facility] website, the following are in-network tertiary facilities: [facility], [facility], [facility], [facility], [facility], [facility], [facility], [facility], [facility], and . Molly BARORW CM
[2019-02-11] MEDS: TICAGRELOR 90 MG TABLET 180 MG PO (10:08)
--- NOTE | 2019-02-11 12:37 | CASEMGMT ---
Assessment- SW met with patient. Introduced self and role at [facility]. Patient in agreement with SW completing assessment. Living situation- Patient lives with his parents in a 3 story home. PCP: Dr Gt Centeno Specialists: Dr Rosa Peter Do- Product Development Assistant with [facility] Pharmacy: [facility] DME: None ADL's/IADL's: Independent in all adl?s Past SNF/rehab: None Past HH: None LW: No. POA: No. Plan: Patient plans on returning home at d/c with no needs. Patient did have a hospitalization in the past where he was set up with outpatient IV antibiotics. SW told patient that if he were to need IV antibiotics at production technologist CM will help set this up. He said Dr Morales said he is hoping that after being in hospital for a few days on IV antibiotics he won't need outpatient I V antibiotics. RN CM to follow for d/c needs. Ilene COYLE DOCK CLERK
[2019-02-11] MEDS: amLODIPine 5 MG Tablet PO (14:45)
--- NOTE | 2019-02-11 14:45 | CL.D_ITS ---
Patient Name: SNEHA JEFFRIES Study Date: 02/11/2019 Performing: Nickolas Avila MD Ht: 75 inches 191 cm : 1960 Wt: 278.1 lbs 126 kg Age: 58 Gender: male BSA: 2.53 Amended PROCEDURE(S) PERFORMED QS13-DZL/COR/LV [id number] RENAL ANGIO WITH HEART CATH CLINICAL PROFILE AND INDICATIONS Indications: Suspected CAD Heart Failure: Newly Diagnosed: Yes, Heart Failure Type: Diastolic, NYHA Class: 4 Stress/Imaging Stress/Image Study Performed: No Angina Classification Anginal Classification w/in 2 Weeks: CCS IV CAD Presentations: Other: Pulmonary Edema CONCLUSIONS Elevated Left Ventricular End Diastolic Pressure Normal LV size, wall motion,and systolic function LVEF: by LV gram 65 % RCA: Proximal: 25% eccentric appearing stenosis which s/p removal of the coronary catheter and subseq uent reevaluation s/p completion of the LCA films, LV gram, and abdominal aortogram, was noted to hav e resolved, thus 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 Abdominal aorta: bilateral renal arteries: patent with no angiographically significant peripheral art erial occlusive disease RECOMMENDATIONS Risk factor modification Medical therapy DESCRIPTION OF PROCEDURE The patient arrived to the procedure lab. The risks and benefits of the procedure as well as a full d escription of our services here and current unavailability of surgical backup were fully explained to the patient and/or their significant other prior to the catheterization. The Timeout was completed, verifying the correct patient and procedure. The patient's procedural site was prepped and draped in the usual fashion. Local anesthetic was given subcutaneously to right radial region with Lidocaine 2% . Using a modified Seldinger technique, arterial access was obtained via the right radial artery, a 6 Fr sheath was inserted. Right Coronary Artery selective angiography was performed in multiple views using a 5 Fr. 4.0 [place] catheter. Left Coronary Artery selective angiography was performed in multipl e views using a 5 Fr. 4.0 [place] catheter. Left Ventriculography was performed in RAM projection using a 5 Fr. [place] catheter. LV to AO pullback pressures were then recorded. Left renal selective angiography was then performed in single view. Right renal selective angiography was then p erformed in single view. Right Coronary Artery selective angiography was then performed in multiple v iews using a 5 Fr. 4.0 [place] catheter.The arterial sheath was pulled and a TR Band was applied for he mostasis CORONARY ANGIOGRAPHY DOMINANCE: Right Dominant LEFT HEART ASSESSMENT Left Ventricular Ejection Fraction: by LV Gram 65 % Normal LV wall motion Elevated Left Ventricular End Diastolic Pressure LVEDP: 25 mmHg LEFT MAIN: Angiographically normal LEFT ANTERIOR DECENDING ARTERY: Mild luminal irregularities PROX LAD: Eccentric: 10 - 25 % Stenosis CIRCUMFLEX ARTERY: Mild luminal irregularities RIGHT CORONARY ARTERY: Mild luminal irregularities VALVE FINDINGS: Normal Aortic Valve function Normal Mitral Valve function AORTIC ROOT: Angiographically normal COMPLICATIONS No Complications PROCEDURE MEDICATIONS Fentanyl 50 mcg IV Versed 1 mg IV Fentanyl 50 mcg IV Versed 1 mg IV Oxygen: 2 L/min via nasal cannula Heparin diluted in 23cc Heparinized saline. Patient given 10cc IA of this solution. 02/11/2019 13:39: 22 Nitro drip running at 30mcg/min ^FreeText^ 02/11/2019 13:17:22 Verapamil 2.5mg, Ntg 100mcgs, 2000 units of Heparin diluted in 23cc Heparinized saline. Patient give n 10cc IA of this solution. 02/11/2019 13:39:22 SUMMARY OF HEMODYNAMIC DATA Time AIR REST ECG 13:18:42 AO 135/61 (95) SA 13:38:48 LV 164/5, 26 13:47:21 LV 159/5, 25 13:47:27 LV 158/2, 23 13:49:03 LV 166/5, 27 13:49:09 LVp 173/9, 29 13:49:13 AOp 162/78 (113) 13:49:18 Signed By Nickolas Avila MD On 02/11/2019 14:44:35 Nickolas Avila MD
[2019-02-11] MEDS: 0.9% Normal Saline 1,000 ML 50 ML IV (15:06)
[2019-02-11] MEDS: hydrALAZINE 20 MG/ML Vial 10 MG IV (17:30)
[2019-02-11] MEDS: ALPRAZolam 0.5 MG Tablet PO (21:14)
[2019-02-11] MEDS: hydrALAZINE 25 MG Tablet PO (21:15)
[2019-02-11] MEDS: Atorvastatin Calcium 20 MG Tablet PO (21:16)
[2019-02-12] VITALS (31 sets, daily range): BP systolic 103–177; BP diastolic 34–77; PULSE 65–95; RESP 12–23; TEMP 36.3–37.1; O2SAT 93–98
[2019-02-12 04:56] LABS: Absolute Lymphocyte Count 1.75 X10^3/ul (0.83-4.51); Absolute Neutrophil Count 5.9 X10^3/uL (2.0-7.7); Basophil# 0.02 X10^3/uL; Basophil% 0.2 % (0-1); Eosinophil# 0.26 X10^3/uL; Hematocrit 41.7 % (40-54); Hemoglobin 14.6 g/dl (13.0-16.5); Lymphocyte # 1.75 X10^3/ul (4.0); Lymphocyte % 20.5 % (19-41); Mean Corpuscular Hgb 31.6 pg (27.0-32.0); Mean Corpuscular Volume 90.3 fL (80-94); Mean Platelet Vol. 9.5 fl (6.2-12.0); Monocyte# 0.59 X10^3/uL; Monocyte% 6.9 % (0-10); Neutrophil # 5.91 X10^3/uL (2.7-7.7); Neutrophil % 69.3 % (47-70); Platelet Count 186 K/mm3 (150-450); RBC Distribution Width CV 13.6 % (11.6-14.6); RBC Distribution Width SD 44.4 fl (35.1-43.9); Red Blood Count 4.62 M/mm3 (4.6-6.2); White Blood Count 8.5 K/mm3 (4.4-11.0)
[2019-02-12] MEDS: oxyCODONE 5 MG Tablet 10 MG PO ×3 (04:57→17:48)
[2019-02-12 04:59] LABS: POSITIVE COUNT NO; POSITIVE DIFFERENTIAL NO; POSITIVE MORPHOLOGY NO
[2019-02-12] MEDS: Furosemide 40 MG/4 ML Vial IV (05:00)
[2019-02-12] MEDS: hydrALAZINE 25 MG Tablet PO ×3 (05:00→21:08)
[2019-02-12 05:30] LABS: Anion Gap 9 (5-15); BUN 12 mg/dL (7-18); BUN/Creat Ratio 12.2 RATIO (10-20); Calcium,Total 8.7 mg/dL (8.5-10.1); Chloride 107 mmol/L (98-107); Creatinine, Serum 0.98 mg/dL (0.70-1.30); EST Glomerular Filtration Rate 83 mL/min (>60); Est Glom Filt Rate - Afr Amer 100 mL/min (>60); Glucose 126 mg/dL (74-106); Potassium 2.7 mmol/L (3.5-5.1); Sodium Level 143 mmol/L (136-145)
--- NOTE | 2019-02-12 05:55 | RAD_ITS ---
STUDY: X-RAY CHEST REASON FOR EXAM: Male, 58 years old. Acute congestive heart failure TECHNIQUE: AP COMPARISON: Previous day FINDINGS: EKG leads project over the chest. Improved aeration of the lungs since the prior study with diminished vascular congestion and interstitial thickening. There is no demonstrated pleural abnormality. There is borderline cardiomegaly. Normal mediastinum and german. Normal visualized pulmonary arteries. Normal visualized aortic arch and descending thoracic aorta. No acute bony process. There is no demonstrated abnormality of the visualized soft tissue structures of the upper abdomen. RAD/Chest 1 View (Portable) IMPRESSION: Favorable change. Resolving CHF/fluid overload. Electronically Signed: Kadeem Jiménez MD at 12:36 EDT , Service support ,
--- NOTE | 2019-02-12 05:55 | EKG12_ITS ---
Test Reason : HTN Blood Pressure : / mmHG Vent. Rate : 075 BPM Atrial Rate : 075 BPM P-R Int : 146 ms QRS Dur : 090 ms QT Int : 418 ms P-R-T Axes : 021 -20 023 degrees QTc Int : 466 ms Normal sinus rhythm with sinus arrhythmia Left ventricular hypertrophy Nonspecific T wave abnormality Prolonged QT Abnormal ECG Confirmed by DESHAWN GOEL, MANISHA ([id number]), editorial clerk FELIBERTO CHAND ([id number]) on 02/21/2019 12:12:12 PM Referred By: Marco Bro Confirmed By:MANISHA HESS MD
--- NOTE | 2019-02-12 06:58 | PCM.PN.HOSP ---
Patient Problems: Active and Suspected Problems Shortness of breath (Acute) Hypertensive emergency (Acute) Pulmonary edema (Acute) Abnormal cardiac enzyme level (Acute) Subjective: Patient with no acute events overnight per self and per nursing report. Patient denies any further market dyspnea but states he still is coughing, mildly white phlegm. He notes no edema and activity tolerance has markedly improved. He denies any ongoing headache since nitroglycerin discontinuation. Discussed current evaluation with cardiac catheterization, renal ultrasound and echocardiogram review. Noted that cardiology would reevaluate with transition from IV Lasix to oral regimen in addition to new oral regimen with BP now improved to 150s over 60s. Patient denies fevers, chills, nausea, emesis, abdominal pain, chest pain or recurrent dyspnea. Objective: Physical Examination: General: awake, alert, oriented x 3 and cooperative, seated upright in the CVICU bed, NAD, resolved prior dyspnea and headache. Skin: normal color, turgor, no icterus, cyanosis. HEENT: AT/NC, EOMI, PERRLA, MMM. Lungs: Diminished breath sounds, greater bases, still mild rales present bases, no rhonchi or wheezing. Heart: Regular rate and rhythm; no gallop, rub audible. Abdomen: soft, obese, NTTP, ND, normal BS. Extremities: no cyanosis, clubbing, resolved LE edema. Neurological: patient awake, alert, oriented x 3; cognitive function intact; pupils equally reactive to light and accomodation; cranial nerves II-XII grossly normal, moving all 4 extremities, no focal deficits, strength improved, mildly to moderately globally decreased. Psychiatric: affect appears normal, no acute evidence of depressive or anxiety feelings. Vitals/I&O's: Vital Signs Temp Pulse Resp BP Pulse Ox 98.7 F 79 18 156/76 H 96 02/12/19 06:00 02/12/19 06:00 02/12/19 06:00 02/12/19 06:00 02/12/19 06:00 Oxygen Flow Rate (L/min) 2 Oxygen Delivery Method Nasal Cannula Weight: 269 lb 10.005 oz Body Mass Index (BMI) 34.8 Intake and Output for Last 24 Hours 02/10/19 02/11/19 02/12/19 23:59 23:59 23:59 Intake Total 839.6 / 839.6 856 / 856 Output Total 6275 / 6275 2350 / 2350 Balance -5435.4 / -5435.4 -1494 / -1494 Laboratory Results 02/11/19 06:00: Triglycerides 134, Cholesterol 174, LDL Cholesterol 108, VLDL Cholesterol 27, HDL Cholesterol 39 L 02/11/19 06:00: Magnesium 1.9 02/11/19 06:00: Hemoglobin A1c 5.4 02/12/19 04:53: WBC 8.5, RBC 4.62, Hgb 14.6, Hct 41.7, MCV 90.3, MCH 31.6, MCHC 35.0, RDW 13.6, RDW Differential 44.4 H, Plt Count 186, MPV 9.5, Immature Gran % (Auto) 0.100, Neut % (Auto) 69.3, Lymph % (Auto) 20.5, [place] % (Auto) 6.9, Eos % (Auto) 3.0, Baso % (Auto) 0.2, Absolute Neuts (auto) 5.9, Absolute Lymphs (auto) 1.75, Total Counted Not Reportable 02/12/19 04:53: Sodium 143, Potassium 2.7 L*, Chloride 107, Carbon Dioxide 27.0, Anion Gap 9, BUN 12, Creatinine 0.98, Estim Creat Clear Calc 97.00, Est GFR (MDRD) Af Amer 100, Est GFR (MDRD) Non-Af 83, BUN/Creatinine Ratio 12.2, Glucose 126 H, Calcium 8.7 Current Medications Alprazolam (Xanax) 0.5 mg PO QHS PRN PRN PRN Reason: SLEEP Last Admin: 02/11/19 21:14 Dose: 0.5 mg Amlodipine Besylate (Norvasc) 10 mg PO DAILY [facility] Aspirin (Aspirin, Baby) 81 mg PO DAILY@0800 [facility] Atorvastatin Calcium (Lipitor) 20 mg PO QHS [facility] Last Admin: 02/11/19 21:16 Dose: 20 mg Furosemide (Lasix) 40 mg IV Q8 [facility] Last Admin: 02/12/19 05:00 Dose: 40 mg Heparin Sodium (Porcine) (Heparin Na) 0 unit IV UD PRN; Protocol Hydralazine HCl (Apresoline) 25 mg PO TID [facility] Last Admin: 02/12/19 05:00 Dose: 25 mg Sodium Chloride () 250 mls @ 15 mls/hr IV .[id number] PRN PRN Reason: SALINE FLUSH Nitroglycerin/Dextrose () 250 mls @ 3 mls/hr CONT INF .[id number] [facility] Last Admin: 02/11/19 18:45 Dose: 3 mls/hr Sodium Chloride () 1,000 mls @ 15 mls/hr IV .Q48H [facility] Last Admin: 02/11/19 15:32 Dose: Not Given Losartan Potassium (Cozaar) 50 mg PO BID [facility] Last Admin: 02/11/19 21:16 Dose: 50 mg Metoprolol Tartrate (Lopressor (Beta Sourav)) 50 mg PO BID [facility] Last Admin: 02/11/19 21:17 Dose: 50 mg Nitroglycerin (Nitrostat) 0.4 mg SUBLINGUAL PRN PRN PRN Reason: CARDIAC/CHEST PAIN Last Admin: 02/11/19 00:16 Dose: 0.4 mg Oxycodone HCl (Oxyir) 10 mg PO Q6H PRN PRN PRN Reason: SEVERE PAIN (6-10/10) Last Admin: 02/12/19 04:57 Dose: 10 mg [facility] Last Admin: 02/11/19 16:42 Dose: 20 meq Sodium Chloride () 5 - 15 ml IV UD PRN PRN Reason: SALINE FLUSH Last Admin: 02/11/19 07:52 Dose: 10 ml Medical Necessity - Tobacco Use Smoking Status: Former smoker Tobacco Use: Cigarettes Assessment/Plan All Active Problems Shortness of breath (Acute) Hypertensive emergency (Acute) Pulmonary edema (Acute) Abnormal cardiac enzyme level (Acute) The patient is a 58 y/o M w/ PMHx: Tobacco use recently quitting, Obesity who presents to the [facility] ED on 02/11/19 with history of ongoing dyspnea, progressively worsening over the last week, severely and abruptly increase the evening before prompting ED presentation with notably concurrent elevated blood pressure upon ED presentation. (1) Hypertensive Emergency: Work-up in the ED included T 98.7, heart rate 127, BP 219/25, respiratory rate 27, 92% on room air, unremarkable CBC, unremarkable coags, BMP with potassium 3.4, chloride 111, glucose 124, troponin 0.066, BNP 236.2, EKG with no acute evidence of ischemia, chest x-ray with cardiomegaly with pulmonary vascular congestion. The ED patient administered IV Lasix and initiated on nitroglycerin drip per cardiology request. Admitted to the ICU, maintain on IV diuresis, placed initially on nitroglycerin drip, heparin drip. Cardiac enzymes trended 0.066-->0.117-->0.111, serial EKGs, FLP w/ TG 134, TChol 174, LDL 108, VLDL 27, HDL 39. Cardiac catheterization with normal LV size, wall motion and systolic function, LVEF 65%, RCA with proximal 25% eccentric appearing stenosis which status post removal of the coronary catheter and subsequent reevaluation status post completion of the LC films, LV gram and abdominal aortogram was noted to have resolved this appearing consistent with catheter tip-induced coronary artery spasm, abdominal aorta with bilateral renal arteries patent with no angiographically skin peripheral arterial occlusive disease with recommendations for risk factor modification and medical therapy. Renal artery duplex ultrasound performed with normal aortic diameter 2 x 2.23 cm and normal flow, greater than 60% stenosis of the right proximal, mid renal artery, right renal length 13.9 cm, less than 60% stenosis left renal artery, left renal length 13 cm. ECHO w/ normal LV systolic function, EF 60%, moderate concentric LVH, mildly enlarged LA, trivial MDI, trivial TBI, moderate focal AV calcification, mild FLORINA, trivial PVI, RVSP 21 mmHg. Medication regimen alterations per cardiology with Norvasc 10 mg, continued IV 40 mg every 8 Lasix w/ 3/30/ AM CXR w/ improved appearance, transitioned to oral lasix 40 mg BID. Continued on losartan 50 mg p.o. twice daily, metoprolol 50 mg p.o. twice daily with transition off NG drip. Possible discharge to home today, will discuss with Cardiology. (2) Pulmonary Edema secondary to #1: Chest x-ray with cardiomegaly and pulmonary vascular congestion secondary to hypertensive emergency presentation, repeat chest x-ray following IV diuresis overnight with improved aeration, continued on IV Lasix diuresis w/ expected oral transition today per Cardiology. ECHO w/ normal LV systolic function, EF 60%, moderate concentric LVH, mildly enlarged LA, trivial MDI, trivial TBI, moderate focal AV calcification, mild FLORINA, trivial PVI, RVSP 21 mmHg. (3) NSTEMI: ED evaluation w/ troponin 0.066, BNP 236.2, EKG with no acute evidence of ischemia, chest x-ray with cardiomegaly with pulmonary vascular congestion. Continued on telemetry, continued on nitroglycerin drip with titration parameters per cardiology, maintained on heparin drip, cardiac enzymes trended v0.066-->0.117-->0.111, serial EKGs, FLP w/ TG 134, TChol 174, LDL 108, VLDL 27, HDL 39, planned cardiac catheterization, ECHO w/ normal LV systolic function, EF 60%, moderate concentric LVH, mildly enlarged LA, trivial MDI, trivial TBI, moderate focal AV calcification, mild FLORINA, trivial PVI, RVSP 21 mmHg. Patient loaded with ASA, Brilinta, maintained on initiated metoprolol, losartan. (4) Hypokalemia: Admission K+ 3.4, supplementation given, repeat level 2.7, given additional supplementation, repeat BMP in AM. (5) Hyperglycemia: Glucose 124, hemoglobin A1c 5.4%. (6) Obesity: Weight loss and lifestyle changes encouraged, nutrition consulted. (7) Tobacco Abuse: Encouraged cessation, inpatient consultation per RT, NR if desired. (8) DVT Prophylaxis: SCDs, heparin drip. Code Visit Inpatient E&M: 10258 Subs Hosp L3
--- NOTE | 2019-02-12 07:01 | PN_ITS ---
Patient Problems: Active and Suspected Problems Shortness of breath (Acute) Hypertensive emergency (Acute) Pulmonary edema (Acute) Abnormal cardiac enzyme level (Acute) Subjective: Patient with no acute events overnight per self and per nursing report. Patient denies any further market dyspnea but states he still is coughing, mildly white phlegm. He notes no edema and activity tolerance has markedly improved. He denies any ongoing headache since nitroglycerin discontinuation. Discussed current evaluation with cardiac catheterization, renal ultrasound and echocardiogram review. Noted that cardiology would reevaluate with transition from IV Lasix to oral regimen in addition to new oral regimen with BP now improved to 150s over 60s. Patient denies fevers, chills, nausea, emesis, abdominal pain, chest pain or recurrent dyspnea. Objective: Physical Examination: General: awake, alert, oriented x 3 and cooperative, seated upright in the CVICU bed, NAD, resolved prior dyspnea and headache. Skin: normal color, turgor, no icterus, cyanosis. HEENT: AT/NC, EOMI, PERRLA, MMM. Lungs: Diminished breath sounds, greater bases, still mild rales present bases, no rhonchi or wheezing. Heart: Regular rate and rhythm; no gallop, rub audible. Abdomen: soft, obese, NTTP, ND, normal BS. Extremities: no cyanosis, clubbing, resolved LE edema. Neurological: patient awake, alert, oriented x 3; cognitive function intact; pupils equally reactive to light and accomodation; cranial nerves II-XII grossly normal, moving all 4 extremities, no focal deficits, strength improved, mildly to moderately globally decreased. Psychiatric: affect appears normal, no acute evidence of depressive or anxiety feelings. Vitals/I&O's: Vital Signs Temp Pulse Resp BP Pulse Ox 98.7 F 79 18 156/76 H 96 02/12/19 06:00 02/12/19 06:00 02/12/19 06:00 02/12/19 06:00 02/12/19 06:00 Oxygen Flow Rate (L/min) 2 Oxygen Delivery Method Nasal Cannula Weight: 269 lb 10.005 oz Body Mass Index (BMI) 34.8 Intake and Output for Last 24 Hours 02/10/19 02/11/19 02/12/19 23:59 23:59 23:59 Intake Total 839.6 / 839.6 856 / 856 Output Total 6275 / 6275 2350 / 2350 Balance -5435.4 / -5435.4 -1494 / -1494 Laboratory Results 02/11/19 06:00: Triglycerides 134, Cholesterol 174, LDL Cholesterol 108, VLDL Cholesterol 27, HDL Cholesterol 39 L 02/11/19 06:00: Magnesium 1.9 02/11/19 06:00: Hemoglobin A1c 5.4 02/12/19 04:53: WBC 8.5, RBC 4.62, Hgb 14.6, Hct 41.7, MCV 90.3, MCH 31.6, MCHC 35.0, RDW 13.6, RDW Differential 44.4 H, Plt Count 186, MPV 9.5, Immature Gran % (Auto) 0.100, Neut % (Auto) 69.3, Lymph % (Auto) 20.5, [place] % (Auto) 6.9, Eos % (Auto) 3.0, Baso % (Auto) 0.2, Absolute Neuts (auto) 5.9, Absolute Lymphs (auto) 1.75, Total Counted Not Reportable 02/12/19 04:53: Sodium 143, Potassium 2.7 L*, Chloride 107, Carbon Dioxide 27.0, Anion Gap 9, BUN 12, Creatinine 0.98, Estim Creat Clear Calc 97.00, Est GFR (MDRD) Af Amer 100, Est GFR (MDRD) Non-Af 83, BUN/Creatinine Ratio 12.2, Glucose 126 H, Calcium 8.7 Current Medications Alprazolam (Xanax) 0.5 mg PO QHS PRN PRN PRN Reason: SLEEP Last Admin: 02/11/19 21:14 Dose: 0.5 mg Amlodipine Besylate (Norvasc) 10 mg PO DAILY [facility] Aspirin (Aspirin, Baby) 81 mg PO DAILY@0800 [facility] Atorvastatin Calcium (Lipitor) 20 mg PO QHS [facility] Last Admin: 02/11/19 21:16 Dose: 20 mg Furosemide (Lasix) 40 mg IV Q8 [facility] Last Admin: 02/12/19 05:00 Dose: 40 mg Heparin Sodium (Porcine) (Heparin Na) 0 unit IV UD PRN; Protocol Hydralazine HCl (Apresoline) 25 mg PO TID [facility] Last Admin: 02/12/19 05:00 Dose: 25 mg Sodium Chloride () 250 mls @ 15 mls/hr IV .[id number] PRN PRN Reason: SALINE FLUSH Nitroglycerin/Dextrose () 250 mls @ 3 mls/hr CONT INF .[id number] [facility] Last Admin: 02/11/19 18:45 Dose: 3 mls/hr Sodium Chloride () 1,000 mls @ 15 mls/hr IV .Q48H [facility] Last Admin: 02/11/19 15:32 Dose: Not Given Losartan Potassium (Cozaar) 50 mg PO BID [facility] Last Admin: 02/11/19 21:16 Dose: 50 mg Metoprolol Tartrate (Lopressor (Beta Sourav)) 50 mg PO BID [facility] Last Admin: 02/11/19 21:17 Dose: 50 mg Nitroglycerin (Nitrostat) 0.4 mg SUBLINGUAL PRN PRN PRN Reason: CARDIAC/CHEST PAIN Last Admin: 02/11/19 00:16 Dose: 0.4 mg Oxycodone HCl (Oxyir) 10 mg PO Q6H PRN PRN PRN Reason: SEVERE PAIN (6-10/10) Last Admin: 02/12/19 04:57 Dose: 10 mg [facility] Last Admin: 02/11/19 16:42 Dose: 20 meq Sodium Chloride () 5 - 15 ml IV UD PRN PRN Reason: SALINE FLUSH Last Admin: 02/11/19 07:52 Dose: 10 ml Medical Necessity - Tobacco Use Smoking Status: Former smoker Tobacco Use: Cigarettes Assessment/Plan All Active Problems Shortness of breath (Acute) Hypertensive emergency (Acute) Pulmonary edema (Acute) Abnormal cardiac enzyme level (Acute) The patient is a 58 y/o M w/ PMHx: Tobacco use recently quitting, Obesity who presents to the [facility] ED on 02/11/19 with history of ongoing dyspnea, progressively worsening over the last week, severely and abruptly increase the evening before prompting ED presentation with notably concurrent elevated blood pressure upon ED presentation. (1) Hypertensive Emergency: Work-up in the ED included T 98.7, heart rate 127, BP 219/25, respiratory rate 27, 92% on room air, unremarkable CBC, unremarkable coags, BMP with potassium 3.4, chloride 111, glucose 124, troponin 0.066, BNP 236.2, EKG with no acute evidence of ischemia, chest x-ray with cardiomegaly with pulmonary vascular congestion. The ED patient administered IV Lasix and initiated on nitroglycerin drip per cardiology request. Admitted to the ICU, maintain on IV diuresis, placed initially on nitroglycerin drip, heparin drip. Cardiac enzymes trended 0.066-->0.117-->0.111, serial EKGs, FLP w/ TG 134, TChol 174, LDL 108, VLDL 27, HDL 39. Cardiac catheterization with normal LV size, wall motion and systolic function, LVEF 65%, RCA with proximal 25% eccentric appearing stenosis which status post removal of the coronary catheter and subsequent reevaluation status post completion of the LC films, LV gram and abdominal aortogram was noted to have resolved this appearing consistent with catheter tip-induced coronary artery spasm, abdominal aorta with bilateral renal arteries patent with no angiographically skin peripheral arterial occlusive disease with recommendations for risk factor modification and medical therapy. Renal artery duplex ultrasound performed with normal aortic diameter 2 x 2.23 cm and normal flow, greater than 60% stenosis of the right proximal, mid renal artery, right renal length 13.9 cm, less than 60% stenosis left renal artery, left renal length 13 cm. ECHO w/ normal LV systolic function, EF 60%, moderate concentric LVH, mildly enlarged LA, trivial MDI, trivial TBI, moderate focal AV calcification, mild FLORINA, trivial PVI, RVSP 21 mmHg. Medication regimen alterations per cardiology with Norvasc 10 mg, continued IV 40 mg every 8 Lasix w/ 3/30/ AM CXR w/ improved appearance, transitioned to oral lasix 40 mg BID. Continued on losartan 50 mg p.o. twice daily, metoprolol 50 mg p.o. twice daily with transition off NG drip. Possible discharge to home today, will discuss with Cardiology. (2) Pulmonary Edema secondary to #1: Chest x-ray with cardiomegaly and pulmonary vascular congestion secondary to hypertensive emergency presentation, repeat chest x-ray following IV diuresis overnight with improved aeration, continued on IV Lasix diuresis w/ expected oral transition today per Cardiology. ECHO w/ normal LV systolic function, EF 60%, moderate concentric LVH, mildly enlarged LA, trivial MDI, trivial TBI, moderate focal AV calcification, mild FLORINA, trivial PVI, RVSP 21 mmHg. (3) NSTEMI: ED evaluation w/ troponin 0.066, BNP 236.2, EKG with no acute ev idence of ischemia, chest x-ray with cardiomegaly with pulmonary vascular congestion. Continued on telemetry, continued on nitroglycerin drip with titration parameters per cardiology, maintained on heparin drip, cardiac enzymes trended v0.066-->0.117-->0.111, serial EKGs, FLP w/ TG 134, TChol 174, LDL 108, VLDL 27, HDL 39, planned cardiac catheterization, ECHO w/ normal LV systolic function, EF 60%, moderate concentric LVH, mildly enlarged LA, trivial MDI, trivial TBI, moderate focal AV calcification, mild FLORINA, trivial PVI, RVSP 21 mmHg. Patient loaded with ASA, Brilinta, maintained on initiated metoprolol, losartan. (4) Hypokalemia: Admission K+ 3.4, supplementation given, repeat level 2.7, given additional supplementation, repeat BMP in AM. (5) Hyperglycemia: Glucose 124, hemoglobin A1c 5.4%. (6) Obesity: Weight loss and lifestyle changes encouraged, nutrition consulted. (7) Tobacco Abuse: Encouraged cessation, inpatient consultation per RT, NR if desired. (8) DVT Prophylaxis: SCDs, heparin drip. Code Visit Inpatient E&M: 22322 Subs Hosp L3
[2019-02-12] MEDS: Aspirin 81 MG TAB.CHEW PO (07:38)
[2019-02-12] MEDS: Losartan Potassium 50 MG Tablet PO ×2 (09:09→21:08)
[2019-02-12] MEDS: Metoprolol Tartrate 50 MG Tablet PO ×2 (09:10→21:08)
[2019-02-12] MEDS: amLODIPine 10 MG Tablet PO (09:10)
--- NOTE | 2019-02-12 11:38 | PCM.PN.CARD ---
Subjectve: The patient appears to be symptomatically improved overall. However he still noted symptoms compatible with an element of orthopnea last night. He states he is better this morning. Objective: Vital Signs Temp Pulse Resp BP Pulse Ox 97.3 F L 95 23 H 140/59 H 94 02/12/19 08:00 02/12/19 10:00 02/12/19 10:00 02/12/19 10:00 02/12/19 10:00 Oxygen Flow Rate (L/min) 2 Oxygen Delivery Method Room Air Weight: 269 lb 10.005 oz Body Mass Index (BMI) 34.8 Intake and Output for Last 24 Hours 02/10/19 02/11/19 02/12/19 23:59 23:59 23:59 Intake Total 839.6 / 839.6 856 / 856 Output Total 6275 / 6275 2350 / 2350 Balance -5435.4 / -5435.4 -1494 / -1494 General: Awake, Alert, Oriented x 3, Cooperative, No Acute Distress HEENT: Atraumatic, Normocephalic, PERRL, EOMI, Sclera Non Icteric Oral: Moist Mucosa Neck: Supple, Good ROM, No JVD Lungs: Diminished Fernando Bases - Minimal to mild Cardiovascular: Regular Rhythm, Premature Ectopic Beats, Normal S1, Normal S2 Vascular: No Carotid Bruits Abdomen: Bowel Sounds Present, Soft, Non Tender Extremities: No edema Neurological: No Focal Motor or Sensory Deficit Psych/Mental Status: Appropriate 02/12/19 04:53: WBC 8.5, RBC 4.62, Hgb 14.6, Hct 41.7, MCV 90.3, MCH 31.6, MCHC 35.0, RDW 13.6, RDW Differential 44.4 H, Plt Count 186, MPV 9.5, Immature Gran % (Auto) 0.100, Neut % (Auto) 69.3, Lymph % (Auto) 20.5, [place] % (Auto) 6.9, Eos % (Auto) 3.0, Baso % (Auto) 0.2, Absolute Neuts (auto) 5.9, Total Counted Not Reportable 02/12/19 04:53: Sodium 143, Potassium 2.7 L*, Chloride 107, Carbon Dioxide 27.0, Anion Gap 9, BUN 12, Creatinine 0.98, Est GFR (MDRD) Af Amer 100, Est GFR (MDRD) Non-Af 83, BUN/Creatinine Ratio 12.2, Glucose 126 H, Calcium 8.7 Rhythm: Sinus rhythm; PACs; LVH; nonspecific ST/T wave abnormality Medical Necessity - Tobacco Use Smoking Status: Former smoker Tobacco Use: Cigarettes Assessment/Plan 1. Hypertensive urgency/emergency The patient appears to be symptomatically improved compared to his emergency department presentation. His blood pressures have improved on medical management. His transthoracic echocardiogram demonstrated findings with respect to his left ventricle compatible with concentric LVH and overall preserved LV systolic function. His diagnostic cardiac catheterization demonstrated no angiographically significant appearing CAD or renal artery disease. He will need to continue medical management and follow-up. 2. Pulmonary edema He does appear to be improving overall based on his history and exam. He has chest x-ray appears improved as well. At the present time he will be transitioned from IV diuretics to oral diuretics. He will be monitored overnight. Hopefully he will remain stable on his oral medical therapy. 3. Abnormal cardiac enzymes His cardiac enzymes appear compatible with his hypertensive urgency/emergency as opposed to a primary acute coronary artery related event. He will continue cardiovascular risk factor evaluation care as deemed appropriate. Comment: The patient's case has been previously discussed and reviewed with the [facility] emergency department staff. This note was generated with [employer] dictation software. It may contain incorrect words, spelling, and punctuation that were not noted in checking the note before signing.
[2019-02-12] MEDS: Furosemide 40 MG Tablet PO ×2 (11:46→17:32)
[2019-02-12 14:13] LABS: Anion Gap 6 (5-15); BUN 16 mg/dL (7-18); BUN/Creat Ratio 14.4 RATIO (10-20); Calcium,Total 8.8 mg/dL (8.5-10.1); Chloride 107 mmol/L (98-107); Creatinine, Serum 1.11 mg/dL (0.70-1.30); EST Glomerular Filtration Rate 72 mL/min (>60); Est Glom Filt Rate - Afr Amer 87 mL/min (>60); Estimated Creatinine Clearance 85.64 ml/min; Glucose 115 mg/dL (74-106); Potassium 3.4 mmol/L (3.5-5.1); Sodium Level 140 mmol/L (136-145)
[2019-02-12] MEDS: Atorvastatin Calcium 20 MG Tablet PO (21:08)
[2019-02-13] VITALS (7 sets, daily range): BP systolic 127–144; BP diastolic 54–66; PULSE 60–70; RESP 16–18; TEMP 36.1–36.9; O2SAT 95–97
[2019-02-13] MEDS: ALPRAZolam 0.5 MG Tablet PO (00:12)
[2019-02-13] MEDS: oxyCODONE 5 MG Tablet 10 MG PO ×2 (00:12→06:55)
[2019-02-13] MEDS: Enoxaparin 40 MG/0.4 ML Syringe SC (05:19)
[2019-02-13] MEDS: hydrALAZINE 25 MG Tablet PO (05:19)
[2019-02-13 05:59] LABS: Absolute Lymphocyte Count 2.82 X10^3/ul (0.83-4.51); Absolute Neutrophil Count 4.1 X10^3/uL (2.0-7.7); Basophil# 0.03 X10^3/uL; Basophil% 0.4 % (0-1); Eosinophil# 0.61 X10^3/uL; Eosinophils% 7.3 % (0-5); Hematocrit 43.5 % (40-54); Hemoglobin 15.2 g/dl (13.0-16.5); Lymphocyte # 2.82 X10^3/ul (4.0); Lymphocyte % 33.8 % (19-41); Mean Corp Hgb Conc 34.9 g/gl (32-36); Mean Corpuscular Hgb 32.1 pg (27.0-32.0); Mean Corpuscular Volume 91.8 fL (80-94); Monocyte# 0.73 X10^3/uL; Monocyte% 8.8 % (0-10); Neutrophil # 4.13 X10^3/uL (2.7-7.7); Neutrophil % 49.5 % (47-70); Platelet Count 193 K/mm3 (150-450); RBC Distribution Width CV 13.8 % (11.6-14.6); RBC Distribution Width SD 45.5 fl (35.1-43.9); Red Blood Count 4.74 M/mm3 (4.6-6.2); White Blood Count 8.3 K/mm3 (4.4-11.0)
[2019-02-13 06:05] LABS: POSITIVE COUNT NO; POSITIVE DIFFERENTIAL NO; POSITIVE MORPHOLOGY NO
[2019-02-13 06:10] LABS: Anion Gap 6 (5-15); BUN 17 mg/dL (7-18); BUN/Creat Ratio 17.7 RATIO (10-20); Calcium,Total 8.7 mg/dL (8.5-10.1); Chloride 108 mmol/L (98-107); Creatinine, Serum 0.96 mg/dL (0.70-1.30); EST Glomerular Filtration Rate 85 mL/min (>60); Est Glom Filt Rate - Afr Amer 103 mL/min (>60); Estimated Creatinine Clearance 99.02 ml/min; Glucose 90 mg/dL (74-106); Potassium 3.6 mmol/L (3.5-5.1); Sodium Level 142 mmol/L (136-145)
[2019-02-13] MEDS: Aspirin 81 MG TAB.CHEW PO (08:44)
[2019-02-13] MEDS: Losartan Potassium 50 MG Tablet PO (10:21)
[2019-02-13] MEDS: Metoprolol Tartrate 50 MG Tablet PO (10:21)
[2019-02-13] MEDS: Furosemide 40 MG Tablet PO (10:21)
[2019-02-13] MEDS: amLODIPine 10 MG Tablet PO (10:21)
--- NOTE | 2019-02-13 10:26 | DCINST_ITS ---
- Discharge Diagnoses Current Active Problems: Current Active and Chronic Problems (1) Hypertensive Emergency (2) Pulmonary Edema secondary to #1 (3) NSTEMI (4) Hypokalemia (5) Hyperglycemia, stress response, hemoglobin A1c 5.4%. (6) Obesity (7) Tobacco Abuse You will use the following diet at home:: Cardiac Your food should be the consistency of: Regular Your liquids should be the consistency of: Regular/Thin Discharge Activity: - - Activity mild to moderate pending re-evalatuion per Cardiology at follow-up. May resume sexual activity in: 10-14 days Weight Bearing Status: Weight bearing as tolerated Call your doctor if you observe: Fever of 101 or Higher, Inability to urinate, Inability to have a bowel movement, Shortness of breath, Dizziness, Fainting spells, Chest pain, Uncontrolled pain Instructions: Controlling High Blood Pressure, Low-Salt Choices, Your High Blood Pressure Risk Factors, Discharge Instructions for High Blood Pressure (Hypertension), Discharge Instructions: Eating a Low-Salt Diet, Understanding Coronary Artery Disease (CAD), Discharge Instructions for Heart Attack Additional Instructions: Please have repeat basic metabolic panel at follow-up with your primary care physician. You have been initiated on blood pressure regimen, some medications which can affect your renal function and electrolytes. Allergies/Adverse Reactions: Allergies No Known Allergies Allergy (Verified 02/10/19 23:48) Medications to take at Discharge Oxycodone HCl/Acetaminophen [Oxycodone-Acetaminophen 10-325] 1 tablet PO 4X/DAY PRN PRN 02/10/19 Amlodipine [Norvasc] 10 mg PO DAILY #30 tablet 02/13/19 Aspirin [Aspirin, Baby] 81 mg PO DAILY@0800 #30 tab.chew 02/13/19 Atorvastatin Calcium [Lipitor] 20 mg PO QHS #30 tablet 02/13/19 Furosemide [Lasix] 40 mg PO BID@1000,1800 #60 tablet 02/13/19 Losartan Potassium [Cozaar] 50 mg PO BID #60 tablet 02/13/19 Metoprolol Tartrate [Lopressor (beta kyle)] 50 mg PO BID #60 tablet 02/13/19 Potassium Chloride [K-Dur] 20 meq PO BIDCM #60 tablet 02/13/19 hydrALAZINE [Apresoline] 25 mg PO TID #90 tablet 02/13/19 The following prescriptions were given: Amlodipine [Norvasc] 10 mg PO DAILY #30 tablet Aspirin [Aspirin, Baby] 81 mg PO DAILY@0800 #30 tab.chew Atorvastatin Calcium [Lipitor] 20 mg PO QHS #30 tablet Furosemide [Lasix] 40 mg PO BID@1000,1800 #60 tablet Losartan Potassium [Cozaar] 50 mg PO BID #60 tablet Metoprolol Tartrate [Lopressor (beta kyle)] 50 mg PO BID #60 tablet Potassium Chloride [K-Dur] 20 meq PO BIDCM #60 tablet hydrALAZINE [Apresoline] 25 mg PO TID #90 tablet Primary Care Physician: Marco Elizalde DO [Primary Care Provider] - Please follow up with your Primary Care Physician in: Follow-up within 3-5 days to review admission. Test Results: Test results from this visit will be discussed in further detail at your follow- up appointment, if applicable. Please Follow Up With: Nickolas Avila MD When: 2-4 weeks, call if concerns. Please Follow Up With: Gt Floyd MD When: Follow-up 2-4 weeks for renal artery duplex stenosis per Cardiology. Proposed Discharge Date: 02/13/19
--- NOTE | 2019-02-13 10:31 | DS.PCM_ITS ---
Discharge Date and Diagnosis - Problem List Patient Problems: Active and Suspected Problems Shortness of breath (Acute) Hypertensive emergency (Acute) Pulmonary edema (Acute) Abnormal cardiac enzyme level (Acute) Date of Admission: 02/11/19 Date of Discharge: 02/13/19 - Primary Discharge Diagnosis Active and Suspected Problems (1) Hypertensive Emergency (2) Pulmonary Edema secondary to #1 (3) NSTEMI (4) Hypokalemia (5) Hyperglycemia, stress response, hemoglobin A1c 5.4%. (6) Obesity (7) Tobacco Abuse - Secondary Discharge Diagnosis (1) Obesity (2) Tobacco Abuse Hospital Course and Treatment Cardiology Dr. Avila Operations: None Procedures: 2-D Echocardiogram, EKG, Stress test Summary of Care Provided: The patient is a 58 y/o M w/ PMHx: Tobacco use recently quitting, Obesity who presented to the [facility] ED on 02/11/19 with history of ongoing dyspnea, progressively worsening over the last week, severely and abruptly increase the evening before prompting ED presentation with notably concurrent elevated blood pressure upon ED presentation. Work-up in the ED included T 98.7, heart rate 127, BP 219/25, respiratory rate 27, 92% on room air, unremarkable CBC, unremarkable coags, BMP with potassium 3.4, chloride 111, glucose 124, troponin 0.066, BNP 236.2, EKG with no acute evidence of ischemia, chest x-ray with cardiomegaly with pulmonary vascular congestion. The ED patient administered IV Lasix and initiated on nitroglycerin drip per cardiology request. Admitted to the ICU, maintain on IV diuresis, placed initially on nitroglycerin drip, heparin drip. Cardiac enzymes trended 0.066-->0.117-->0.111, serial EKGs, FLP w/ TG 134, TChol 174, LDL 108, VLDL 27, HDL 39. Cardiac catheterization with normal LV size, wall motion and systolic function, LVEF 65%, RCA with proximal 25% eccentric appearing stenosis which status post removal of the coronary catheter and subsequent reevaluation status post completion of the LC films, LV gram and abdominal aortogram was noted to have resolved this appearing consistent with catheter tip-induced coronary artery spasm, abdominal aorta with bilateral renal arteries patent with no angiographically skin peripheral arterial occlusive disease with recommendations for risk factor modification and medical therapy. Renal artery duplex ultrasound performed with normal aortic diameter 2 x 2.23 cm and normal flow, greater than 60% stenosis of the right proximal, mid renal artery, right renal length 13.9 cm, less than 60% stenosis left renal artery, left renal length 13 cm. ECHO w/ normal LV systolic function, EF 60%, moderate concentric LVH, mildly enlarged LA, trivial MDI, trivial TBI, moderate focal AV calcification, mild FLORINA, trivial PVI, RVSP 21 mmHg. Medication regimen alterations per cardiology with Norvasc 10 mg, continued IV 40 mg every 8 Lasix w/ 02/12/19 AM CXR w/ improved appearance, transitioned to oral lasix 40 mg BID. Continued on losartan 50 mg p.o. twice daily, metoprolol 50 mg p.o. twice daily with transition off NG drip, hydralazine 25 mg TID. Patient clinically improved, BP improved on oral regimen alone and patient had no further dyspnea complaint, up and moving, no evidence of edema or orthopnea. Patient cleared for discharge to home on new BP regimen with PCP follow-up within 3-5 days, Cardiology 2-4 weeks, Dr. Floyd Vascular Surgery for continued evaluation of noted renal artery unilateral stenosis although on angiogram with catheterization not marked but cardiology preference for close monitoring. DAY OF DISCHARGE PROGRESS NOTE: Subjective: Patient without acute event overnight per self and nursing report. Patient notes complete resolution of prior dyspnea complaint, denies any orthopnea overnight as well. Patient denies fever, chills, nausea, emesis, abdominal pain, chest pain. Patient agreeable to discharge to home. Patient will be discharged with follow-up with primary care physician within 3-5 days in addition to cardiology as well as vascular surgery. Objective: T 97, heart rate 68, BP 134/54, respiratory rate 16, 95% room air. Physical Examination: General: awake, alert, oriented x 3 and cooperative, seated upright in the bed, NAD. Skin: normal color, turgor, no icterus, cyanosis. HEENT: AT/NC, EOMI, PERRLA, MMM. Lungs: CTA bilaterally, moderate effort, mild decrease BL bases, no rales, ronchi or wheezing; Heart: Regular rate and rhythm; no gallop, rub audible. Abdomen: soft, obese, NTTP, ND, normal BS. Extremities: no cyanosis, clubbing, or edema. Neurological: patient awake, alert, oriented x 3; cognitive function appears intact upon questioning,; pupils equally reactive to light and accomodation; cranial nerves II-XII grossly normal, moving all 4 extremities, strength improved, appropriate. Psychiatric: affect appears normal, no acute evidence of depressive or anxiety feelings. Assessment and Plan: Please see hospital summary above. Patient Problems: Active and Suspected Problems Shortness of breath (Acute) Hypertensive emergency (Acute) Pulmonary edema (Acute) Abnormal cardiac enzyme level (Acute) - Physical Exam Vital Signs Temp Pulse Resp BP Pulse Ox 97.0 F L 68 16 134/54 H 95 02/13/19 10:14 02/13/19 10:21 02/13/19 10:14 02/13/19 10:21 02/13/19 10:14 Oxygen Flow Rate (L/min) 2 Oxygen Delivery Method Room Air Weight: 271 lb 6.224 oz Body Mass Index (BMI) 34.8 Intake and Output for Last 24 Hours 02/11/19 02/12/19 02/13/19 23:59 23:59 23:59 Intake Total 839.6 / 839.6 2010 600 / 600 Output Total 6275 / 6275 3200 / 3200 525 / 525 Balance -5435.4 / -5435.4 -1189 / -1189 75 / 75 Laboratory Tests Past 24 Hrs 02/12/19 02/13/19 02/13/19 13:30 05:20 05:20 WBC 8.3 RBC 4.74 Hgb 15.2 Hct 43.5 MCV 91.8 MCH 32.1 H MCHC 34.9 RDW 13.8 RDW Differential 45.5 H Plt Count 193 MPV 10.0 Immature Gran % (Auto) 0.200 Neut % (Auto) 49.5 Lymph % (Auto) 33.8 [place] % (Auto) 8.8 Eos % (Auto) 7.3 H Baso % (Auto) 0.4 Absolute Neuts (auto) 4.1 Absolute Lymphs (auto) 2.82 Total Counted Not Reportable Sodium 140 142 Potassium 3.4 L 3.6 Chloride 107 108 H Carbon Dioxide 27.0 28.0 Anion Gap 6 6 BUN 16 17 Creatinine 1.11 0.96 Estim Creat Clear Calc 85.64 99.02 Est GFR (MDRD) Af Amer 87 103 Est GFR (MDRD) Non-Af 72 85 BUN/Creatinine Ratio 14.4 17.7 Glucose 115 H 90 Calcium 8.8 8.7 Discharge Activity: - - Activity mild to moderate pending re-evalatuion per Cardiology at follow-up. May resume sexual activity in: 10-14 days Weight Bearing Status: Weight bearing as tolerated Call your doctor if you observe: Fever of 101 or Higher, Inability to urinate, Inability to have a bowel movement, Shortness of breath, Dizziness, Fainting spells, Chest pain, Uncontrolled pain Home Medications: Medications to take at Discharge Oxycodone HCl/Acetaminophen [Oxycodone-Acetaminophen 10-325] 1 tablet PO 4X/DAY PRN PRN 02/10/19 Amlodipine [Norvasc] 10 mg PO DAILY #30 tablet 02/13/19 Aspirin [Aspirin, Baby] 81 mg PO DAILY@0800 #30 tab.chew 02/13/19 Atorvastatin Calcium [Lipitor] 20 mg PO QHS #30 tablet 02/13/19 Furosemide [Lasix] 40 mg PO BID@1000,1800 #60 tablet 02/13/19 Losartan Potassium [Cozaar] 50 mg PO BID #60 tablet 02/13/19 Metoprolol Tartrate [Lopressor (beta sourav)] 50 mg PO BID #60 tablet 02/13/19 Potassium Chloride [K-Dur] 20 meq PO BIDCM #60 tablet 02/13/19 hydrALAZINE [Apresoline] 25 mg PO TID #90 tablet 02/13/19 Following Prescrptions Were Given to Patient: Amlodipine [Norvasc] 10 mg PO DAILY #30 tablet Aspirin [Aspirin, Baby] 81 mg PO DAILY@0800 #30 tab.chew Atorvastatin Calcium [Lipitor] 20 mg PO QHS #30 tablet Furosemide [Lasix] 40 mg PO BID@1000,1800 #60 tablet Losartan Potassium [Cozaar] 50 mg PO BID #60 tablet Metoprolol Tartrate [Lopressor (beta sourav)] 50 mg PO BID #60 tablet Potassium Chloride [K-Dur] 20 meq PO BIDCM #60 tablet hydrALAZINE [Apresoline] 25 mg PO TID #90 tablet Primary Care Physician: Marco Elizalde DO [Primary Care Provider] - Please follow up with your Primary Care Physician in: Follow-up within 3-5 days to review admission. Please Follow Up With: Nickolas Avila MD When: 2-4 weeks, call if concerns. Please Follow Up With: Gt Floyd MD When: Follow-up 2-4 weeks for renal artery duplex stenosis per Cardiology. Patient Instructions: Controlling High Blood Pressure, Low-Salt Choices, Your High Blood Pressure Risk Factors, Understanding Coronary Artery Disease (CAD), Discharge Instructions for Heart Attack, Discharge Instructions for High Blood Pressure (Hypertension), Discharge Instructions: Eating a Low-Salt Diet Disposition: Home Minutes spent on discharge:: 35 Patient Condition:: Good Medical Necessity - Tobacco Use Smoking Status: Former smoker Tobacco Use: Cigarettes Meaningful Use Info Meaningful Use Diagnoses (Choose all that apply): AMI - AMI Aspirin given w/in 24hrs of arrival?: Yes ASA at discharge?: Yes Statins at discharge?: Yes Aniceto/ARB at discharge?: Yes Beta Sourav at discharge?: Yes Done w/ Acute SD measure.: Yes Code Visit Inpatient E&M: 61500 Disch Hosp
--- NOTE | 2019-02-13 12:01 | PCM.PN.CARD ---
Subjectve: The patient is awake and alert. He has been up and ambulating. He states overall he feels markedly improved compared to his admission to the hospital. Objective: Vital Signs Temp Pulse Resp BP Pulse Ox 97.0 F L 68 16 134/54 H 95 02/13/19 10:14 02/13/19 10:21 02/13/19 10:14 02/13/19 10:21 02/13/19 10:14 Oxygen Flow Rate (L/min) 2 Oxygen Delivery Method Room Air Weight: 271 lb 6.224 oz Body Mass Index (BMI) 34.8 Intake and Output for Last 24 Hours 02/11/19 02/12/19 02/13/19 23:59 23:59 23:59 Intake Total 839.6 / 839.6 2010 600 / 600 Output Total 6275 / 6275 3200 / 3200 525 / 525 Balance -5435.4 / -5435.4 -1189 / -1189 75 / 75 General: Awake, Alert, Oriented x 3, Cooperative, No Acute Distress HEENT: Atraumatic, Normocephalic, PERRL, EOMI, Sclera Non Icteric Oral: Moist Mucosa Neck: Supple, Good ROM, No JVD Lungs: Clear to auscultation Cardiovascular: Regular Rhythm, Normal S2 Vascular: No Carotid Bruits Abdomen: Bowel Sounds Present, Soft, Non Tender Extremities: No Cyanosis, No Clubbing, No edema Neurological: No Focal Motor or Sensory Deficit Psych/Mental Status: Appropriate 02/12/19 13:30: Sodium 140, Potassium 3.4 L, Chloride 107, Carbon Dioxide 27.0, Anion Gap 6, BUN 16, Creatinine 1.11, Est GFR (MDRD) Af Amer 87, Est GFR (MDRD) Non-Af 72, BUN/Creatinine Ratio 14.4, Glucose 115 H, Calcium 8.8 02/13/19 05:20: WBC 8.3, RBC 4.74, Hgb 15.2, Hct 43.5, MCV 91.8, MCH 32.1 H, MCHC 34.9, RDW 13.8, RDW Differential 45.5 H, Plt Count 193, MPV 10.0, Immature Gran % (Auto) 0.200, Neut % (Auto) 49.5, Lymph % (Auto) 33.8, [place] % (Auto) 8.8, Eos % (Auto) 7.3 H, Baso % (Auto) 0.4, Absolute Neuts (auto) 4.1, Total Counted Not Reportable 02/13/19 05:20: Sodium 142, Potassium 3.6, Chloride 108 H, Carbon Dioxide 28.0, Anion Gap 6, BUN 17, Creatinine 0.96, Est GFR (MDRD) Af Amer 103, Est GFR (MDRD) Non-Af 85, BUN/Creatinine Ratio 17.7, Glucose 90, Calcium 8.7 Rhythm: Sinus rhythm Medical Necessity - Tobacco Use Smoking Status: Former smoker Tobacco Use: Cigarettes Assessment/Plan 1. Hypertensive urgency/emergency The patient appears to be symptomatically improved compared to his emergency department presentation. His blood pressures have improved on medical management. His transthoracic echocardiogram demonstrated findings with respect to his left ventricle compatible with concentric LVH and overall preserved LV systolic function. His diagnostic cardiac catheterization demonstrated no angiographically significant appearing CAD or renal artery disease. He will need to continue medical management and follow-up. 2. Pulmonary edema He does appear to be improving overall based on his history and exam. He has chest x-ray appears improved as well. He appears to be doing well with respect to his volume status on oral diuretics. They can be adjusted over time as needed. 3. Abnormal cardiac enzymes His cardiac enzymes appear compatible with his hypertensive urgency/emergency as opposed to a primary acute coronary artery related event. He will continue cardiovascular risk factor evaluation care as deemed appropriate. Comment: The patient's case has been previously discussed and reviewed with the [facility] emergency department staff. This note was generated with [employer] dictation software. It may contain incorrect words, spelling, and punctuation that were not noted in checking the note before signing.
== END 2019-02-13 11:11 | disposition home or self-care (01) | DRG 280 ==
LOC: ED 02-11 00:12 → ICU 02-11 02:27 → PCU 02-12 13:07
PROVIDERS: Admitting Provider Internal Medicine; Emergency Provider Emergency Medicine; Family Provider Family Medicine; PCP Family Medicine; Referring Provider Internal Medicine; Visit Provider Family Medicine
DX: I16.1 Hypertensive emergency (principal); I21.4 Non-ST elevation (NSTEMI) myocardial infarction; I50.31 Acute diastolic (congestive) heart failure; I11.0 Hypertensive heart disease with heart failure; Z87.891 Personal history of nicotine dependence; Z91.14 Patient's other noncompliance with medication regimen; E87.6 Hypokalemia; G89.4 Chronic pain syndrome; R09.02 Hypoxemia; E66.9 Obesity, unspecified; Z68.36 Body mass index [BMI] 36.0-36.9, adult; R73.9 Hyperglycemia, unspecified; Z79.891 Long term (current) use of opiate analgesic
CPT/HCPCS: 36415; 71045; 75625; 80048; 80061; 83036; 83735; 83880; 84484; 85025; 85610; 85730; 93005; 93306; 93458; 93975; 99152; 99153; 99285; 99406; J7030; Q9957; A4216; C1769; C1894; C8929; J1940; Q9967

== ENCOUNTER → 2019-02-16 09:54 | Outpatient (CLI) | payer BC, SELFPAY ==
[2019-02-11 02:49] VITALS: BMI 34.8
[2019-02-16 11:29] LABS: Anion Gap 8 (5-15); BUN 24 mg/dL (7-18); BUN/Creat Ratio 19.5 RATIO (10-20); Calcium,Total 9.6 mg/dL (8.5-10.1); Chloride 105 mmol/L (98-107); Creatinine, Serum 1.23 mg/dL (0.70-1.30); EST Glomerular Filtration Rate 64 mL/min (>60); Est Glom Filt Rate - Afr Amer 77 mL/min (>60); Glucose 152 mg/dL (74-106); Potassium 3.8 mmol/L (3.5-5.1); Sodium Level 137 mmol/L (136-145)
== END ==
PROVIDERS: Family Provider Family Medicine; PCP Family Medicine; Referring Provider Internal Medicine Cardiovascular Disease; Visit Provider Internal Medicine Cardiovascular Disease
DX: I16.1 Hypertensive emergency (principal)
CPT/HCPCS: 36415; 80048

== ENCOUNTER → 2020-09-17 10:16 | Outpatient (CLI) | payer BC, SELFPAY ==
[2019-02-11 02:49] VITALS: BMI 34.8
[2020-09-17 12:46] LABS: Absolute Lymphocyte Count 1.81 X10^3/uL (0.83-4.51); Absolute Neutrophil Count 5.7 X10^3/uL (2.0-7.7); Basophil# 0.04 X10^3/uL; Basophil% 0.5 % (0-1); Eosinophil# 0.76 X10^3/uL; Eosinophils% 8.6 % (0-5); Hematocrit 40.5 % (40-54); Hemoglobin 13.6 g/dL (13.0-16.5); Lymphocyte # 1.81 X10^3/ul (4.0); Lymphocyte % 20.4 % (19-41); Mean Corp Hgb Conc 33.6 g/dL (32-36); Mean Corpuscular Volume 92.3 fL (80-94); Mean Platelet Vol. 10.5 fl (6.2-12.0); Monocyte% 5.6 % (0-10); NRBC Flagged by Analyzer 0 % (0-5); Neutrophil # 5.73 X10^3/uL (2.7-7.7); Neutrophil % 64.6 % (47-70); Platelet Count 182 K/mm3 (150-450); RBC Distribution Width CV 12.6 % (11.6-14.6); RBC Distribution Width SD 42.8 fl (35.1-43.9); Red Blood Count 4.39 M/mm3 (4.6-6.2); White Blood Count 8.9 K/mm3 (4.4-11.0)
[2020-09-17 12:56] LABS: ALB/GLOB Ratio 1.2 RATIO (0.9-2.4); AST(SGOT) 36 U/L (15-37); Alanine Aminotransfer ALT/SGPT 49 U/L (16-61); Albumin, Serum 4.3 g/dL (3.2-5.0); Alkaline Phosphatase 48 U/L (45-117); Anion Gap 11 (5-15); BUN 25 mg/dL (7-18); BUN/Creat Ratio 9.8 RATIO (10-20); Calcium,Total 8.6 mg/dL (8.5-10.1); Chloride 102 mmol/L (98-107); Cholesterol 165 mg/dL (200); Creatinine, Serum 2.54 mg/dL (0.70-1.30); EST Glomerular Filtration Rate 28 mL/min (>60); Est Glom Filt Rate - Afr Amer 33 mL/min (>60); Globulin 3.7 g/dL (2.2-4.2); Glucose 97 mg/dL (74-106); High Density Lipoprotein 36 mg/dL; Potassium 3.4 mmol/L (3.5-5.1); Sodium Level 134 mmol/L (136-145); Triglycerides 314 mg/dL; Very Low Density Lipoprotein 63 mg/dL (5-40)
== END ==
PROVIDERS: PCP Family Medicine; Visit Provider Family Medicine
DX: Z00.00 Encounter for general adult medical examination without abnormal findings (principal); Z12.5 Encounter for screening for malignant neoplasm of prostate; Z51.81 Encounter for therapeutic drug level monitoring
CPT/HCPCS: 36415; 80053; 80061; 84153; 85025; G0103

== ENCOUNTER → 2021-03-07 16:17 | Outpatient (CLI) | payer BC, SELFPAY ==
[2019-02-11 02:49] VITALS: BMI 34.8
[2021-03-07 18:11] LABS: Color, Urine Yellow (Yellow); Glucose, Dipstick Normal (Normal); Ketone-Dipstick Negative (Negative); Leukocyte Esterase-Dipstick Negative /ul (Negative); Nitrite-Dipstick Negative (Negative); Occult Blood-Urine Negative /ul (Negative); Protein-Dipstick Negative (Negative); Urine Bilirubin Dipstick Negative (Negative); Urine Clarity Clear (Clear); Urine Urobilinogen Normal (Normal)
[2021-03-07 18:21] LABS: Vitamin D,25 Hydroxy 8.3 ng/mL
[2021-03-07 18:28] LABS: Anion Gap 8 (5-15); BUN 21 mg/dL (7-18); BUN/Creat Ratio 9.3 RATIO (10-20); Calcium,Total 8.8 mg/dL (8.5-10.1); Chloride 105 mmol/L (98-107); Creatinine, Serum 2.26 mg/dL (0.70-1.30); EST Glomerular Filtration Rate 31 mL/min (>60); Est Glom Filt Rate - Afr Amer 38 mL/min (>60); Glucose 108 mg/dL (74-106); Potassium 3.6 mmol/L (3.5-5.1); Sodium Level 136 mmol/L (136-145)
[2021-03-08 07:47] LABS: PTHIN 103.2 pg/mL (18.4-80.1)
== END ==
PROVIDERS: PCP Family Medicine; Referring Provider Family Medicine; Visit Provider Family Medicine
DX: N18.4 Chronic kidney disease, stage 4 (severe) (principal)
CPT/HCPCS: 36415; 80048; 81002; 82306; 83970; 84100

== ENCOUNTER 2021-05-09 10:54 | Emergency (ER) | payer BC, SELFPAY ==
[2019-02-11 02:49] VITALS: BMI 34.8
[2021-05-09 10:55] VITALS: BP 134/85; PULSE 76; RESP 15; TEMP 36.1; O2SAT 99; BMI 30.7
--- NOTE | 2021-05-09 11:04 | EKG12_ITS ---
Test Reason : DIZZINESS Blood Pressure : / mmHG Vent. Rate : 058 BPM Atrial Rate : 058 BPM P-R Int : 150 ms QRS Dur : 090 ms QT Int : 434 ms P-R-T Axes : 009 -17 006 degrees QTc Int : 426 ms Sinus bradycardia Left ventricular hypertrophy with repolarization abnormality Abnormal ECG Confirmed by SAQIB GOEL, DENNY ([id number]), videotape editor FELIBERTO CHAND ([id number]) on 05/10/2021 12:59:37 PM Referred By: RENO Confirmed By:DENNY CERRATO MD
--- NOTE | 2021-05-09 11:05 | EX.ED.DYSGE1 ---
HPI History of Present Illness Chief Complaint: Dizziness Informant: patient Onset/Context/Timing Onset: Weeks Context: Gradual Onset Timing: Intermittent Current Severity: Moderate Maximum Severity: Moderate Narrative Narrative: Patient is a 62-year-old male medical history significant for coronary vascular disease, CHF, and hypertension who presents to the emergency department with multiple complaints. Patient states that he has been following with his primary care. He states that he was found to have some renal insufficiency. He was told to have outpatient imaging done of his kidneys and see a account receivable associate. The patient states that he was feeling better so he never followed up. He states that over the past 2 weeks, he has had generalized fatigue, malaise, has been itching, and has lightheadedness with standing. He states sometimes is short of breath. He denies orthopnea. He denies chest pain. He denies any pleuritic pain. He is not had cough or fever. [facility] Medical History (Updated 05/09/21 @ 11:15 by Grace Burnett) Atherosclerotic heart disease of [place] coronary artery without angina pectoris Congestive heart failure (CHF) Essential hypertension Pure hypercholesterolemia Status post left heart catheterization (LHC) (~02/11/19) Home Medications oxycodone-acetaminophen 1 tab PO 4X/DAY PRN PRN 02/10/19 [History Last Taken 02/10/19] amlodipine 10 mg PO DAILY #30 tab 02/13/19 [Rx Last Taken Unknown] aspirin 81 mg PO DAILY@0800 #30 tab.chew 02/13/19 [Rx Last Taken Unknown] atorvastatin 20 mg PO QHS #30 tab 02/13/19 [Rx Last Taken Unknown] furosemide 40 mg PO BID@1000,1800 #60 tab 02/13/19 [Rx Last Taken Unknown] hydralazine 25 mg PO TID #90 tab 02/13/19 [Rx Last Taken Unknown] losartan 50 mg PO BID #60 tab 02/13/19 [Rx Last Taken Unknown] metoprolol tartrate 50 mg PO BID #60 tab 02/13/19 [Rx Last Taken Unknown] potassium chloride 20 meq PO BIDCM #60 tab 02/13/19 [Rx Last Taken Unknown] cholecalciferol (vitamin D3) 1,250 mcg PO QWEEK 05/09/21 [History Last Taken Unknown] potassium chloride 20 meq PO DAILY #30 tab 05/09/21 [Rx Last Taken Unknown] Allergy/AdvReac Type Severity Reaction Status Date / Time No Known Allergies Allergy Verified 05/09/21 10:58 Family History Mother Cancer Lymphoma Surgical History History of bilateral hip replacements History of herniorrhaphy Social History Smoking Status: Current every day smoker tobacco type: cigarettes alcohol intake: current details: rare substance use type: does not use ROS ROS ED Constitutional Constitutional ED: Reports weight loss; Denies chills or fever(s) Eyes Eyes: Denies blurry vision or change in vision ENT ENT ED: Denies ear pain or sore throat Cardiovascular Cardiovascular: Denies chest pain or palpitations Respiratory/Chest Respiratory/Chest: Reports dyspnea; Denies cough or dyspnea on exertion Gastrointestinal Gastrointestinal: Reports nausea; Denies abdominal pain or vomiting Genitourinary Genitourinary ED: Denies dysuria or urinary frequency Musculoskeletal Musculoskeletal: Denies arthralgias or myalgias Integumentary Denies rash Neurologic Neurologic: Denies headache(s) or paresthesias Psychiatric Psychiatric: Denies anxiety or depression Endocrine Endocrinology: Denies polydipsia or polyuria Allergic/Immunologic Allergic/Immunologic ED: Denies urticaria EXAM Physical Exam Const Vital Signs: 05/09/21 10:55 05/09/21 11:12 05/09/21 11:13 Temperature 96.9 F L 96.9 F L Temperature Source Temporal Temporal Pulse Rate 76 64 Pulse Rate [Lying] 70 Pulse Rate [Sitting] 68 Pulse Rate [Standing] 68 Respiratory Rate 15 18 Respiratory Effort Normal Non-Labored Respiratory Pattern Normal Blood Pressure 134/85 H 137/69 H Blood Pressure [Lying] 133/61 H Blood Pressure [Sitting] 137/69 H Blood Pressure [Standing] 126/80 H Blood Pressure Mean 101 91 Blood Pressure Mean [Lying] 85 Blood Pressure Mean [Sitting] 91 Blood Pressure Mean [Standing] 95 Pulse Ox 99 100 Oxygen Delivery Method Room Air Room Air Positive well nourished and well developed General Appearance ED: well developed HEENT Reports normocephalic, head/scalp atraumatic and moist mucous membranes Eyes PERRL and EOMs intact bilaterally Neck no lymphadenopathy and supple General: Negative for tenderness Chest Wall inspection of chest normal Resp normal respiratory effort and clear to auscultation bilaterally Cardio regular rate, regular rhythm and no murmurs GI normal to inspection, nondistended, normoactive bowel sounds Palpation: Negative for tender, guarding or rebound tenderness present Back/Spine no CVA tenderness Cervical Spine: Negative for cervical spine tenderness Thoracic Spine / Upper Back: Negative for thoracic spinal tenderness Extremity normal to inspection General Extremety ED: Negative for tenderness Neuro oriented x3 and CN's II-XII intact bilaterally Neuro Narrative: No focal deficits appreciated. Sensorium / Orientation: alert Psych mental status grossly normal Skin no rashes or lesions noted, no wounds and skin turgor normal MDM MDM MDM Narrative Medical decision making narrative: Patient presents concerned about his underlying kidney disease. He has some vague complaints of generalized malaise and fatigue. Broad metabolic work-up was pursued. Patient is not significantly anemic. His kidney function is actually improving. He is mildly hypokalemic but has no EKG changes. Chest x-ray reviewed by both myself and the radiologist shows no focal treated process, evidence of CHF, or pneumonia. His urine does show some trace protein, but no evidence of infection. At this point, the patient is reassured. His potassium will be replaced. He wants to attempt outpatient therapy and I feel this is reasonable. I did personnel counselor him on the importance of keeping the appointment with his account receivable associate. He will be discharged home. Impression 1. Generalized malaise 2. Hypokalemia Lab Data Attestation: I reviewed the patient's lab results. Labs: Laboratory Results - last 24 hr 05/09/21 05/09/21 05/09/21 11:28 11:35 11:35 WBC 9.3 RBC 4.21 L Hgb 12.5 L Hct 36.8 L MCV 87.4 MCH 29.7 MCHC 34.0 RDW Std Deviation 42.2 RDW Coeff of Ladi 13.3 Plt Count 201 MPV 8.9 Immature Gran % (Auto) 0.300 Neut % (Auto) 74.8 H Lymph % (Auto) 16.8 L [place] % (Auto) 5.3 Eos % (Auto) 2.3 Baso % (Auto) 0.5 Absolute Neuts (auto) 6.9 Absolute Lymphs (auto) 1.55 Nucleated RBC % 0 Sodium 137 Potassium 3.0 L Chloride 104 Carbon Dioxide 25.0 Anion Gap 8 BUN 16 Creatinine 1.63 H Estim Creat Clear Calc 56.16 Est GFR (MDRD) Af Amer 55 L Est GFR (MDRD) Non-Af 46 L BUN/Creatinine Ratio 9.8 L Glucose 97 Calcium 9.9 Total Bilirubin 0.40 AST 17 ALT 21 Alkaline Phosphatase 52 Total Protein 8.4 H Albumin 4.3 Globulin 4.1 Albumin/Globulin Ratio 1.0 Urine Color Yellow Urine Clarity Clear Urine pH 6.0 Ur Specific [place] 1.010 Urine Protein 30 H Urine Glucose (UA) Normal Urine Ketones Negative Urine Occult Blood Negative Urine Nitrite Negative Urine Bilirubin Negative Urine Urobilinogen Normal Ur Leukocyte Esterase 25 H Urine RBC 0 SEEN Urine WBC 0-5 SEEN Ur Squamous Epith Cells 0 SEEN Urine Bacteria 0 SEEN Urine Mucus 0 SEEN Radiography Diagnostic Testing: Radiology Impression Chest X-Ray 05/09/21 11:35 IMPRESSION: Normal x-ray examination of the chest unchanged since 02/12/2019. Electronically Signed: Azra Grove, at 12:02 EDT Tel , Service support , Discharge Plan Triage Chief Complaint: Dizziness ED Provider: Haile Bowles Dx/Rx/DC Orders Instructions: ED Weakness (Uncertain Cause) Prescriptions: New potassium chloride 20 mEq tablet extended release 20 meq PO DAILY Qty: 30 RF: 0 No Action oxycodone-acetaminophen 1 EACH tablet 1 tab PO 4X/DAY PRN PRN (Reason: Pain) RF: 0 losartan 50 MG tablet 50 mg PO BID Qty: 60 RF: 0 furosemide 40 MG tablet 40 mg PO BID@1000,1800 Qty: 60 RF: 0 atorvastatin 20 MG tablet 20 mg PO QHS Qty: 30 RF: 0 hydralazine 25 MG tablet 25 mg PO TID Qty: 90 RF: 0 potassium chloride 20 MEQ tablet 20 meq PO BIDCM Qty: 60 RF: 0 amlodipine 10 MG tablet 10 mg PO DAILY Qty: 30 RF: 0 metoprolol tartrate 50 MG tablet 50 mg PO BID Qty: 60 RF: 0 aspirin 81 MG tablet,chewable 81 mg PO DAILY@0800 Qty: 30 RF: 0 cholecalciferol (vitamin D3) 1,250 mcg (50,000 unit) capsule 1,250 mcg PO QWEEK RF: 0 Primary Care Provider: Marco Elizalde Referrals: Marco Elizalde DO [Primary Care Provider] -
[2021-05-09 11:12] VITALS: BP 126/80; BP 133/61; BP 137/69; PULSE 68; PULSE 70
[2021-05-09 11:13] VITALS: BP 137/69; PULSE 64; RESP 18; TEMP 36.1; O2SAT 100
--- NOTE | 2021-05-09 11:35 | RAD_ITS ---
STUDY: X-RAY CHEST REASON FOR EXAM: Male, 61 years old. sob TECHNIQUE: 2 views COMPARISON: 02/12/2019 FINDINGS: The lungs are clear and expanded. There is no demonstrated pleural abnormality. Normal size heart. Normal mediastinum and g[place]. Normal visualized pulmonary arteries. Normal visualized aortic arch and descending thoracic aorta. Normal visualized thoracic spine. Normal visualized ribs, clavicles, and shoulders. There is no demonstrated abnormality of the visualized soft tissue structures of the upper abdomen. RAD/Chest 1 View (Portable) IMPRESSION: Normal x-ray examination of the chest unchanged since 02/12/2019. Electronically Signed: Azra Grove, at 12:02 EDT Tel , Service support ,
[2021-05-09 11:36] LABS: Bacteria 0 SEEN /hpf (None Seen); Mucous, Urine 0 SEEN /hpf (<or=2+); Red Blood Cells-Urine 0 SEEN /hpf (0-5); Squamous Epithelial Cells - UA 0 SEEN /hpf (0-5)
[2021-05-09 11:43] LABS: Color, Urine Yellow (Yellow); Glucose, Dipstick Normal (Normal); Ketone-Dipstick Negative (Negative); Leukocyte Esterase-Dipstick 25 /ul (Negative); Nitrite-Dipstick Negative (Negative); Occult Blood-Urine Negative /ul (Negative); Protein-Dipstick 30 mg/dl (Negative); Urine Bilirubin Dipstick Negative (Negative); Urine Clarity Clear (Clear); Urine Urobilinogen Normal (Normal)
[2021-05-09 11:44] LABS: Absolute Lymphocyte Count 1.55 X10^3/uL (0.83-4.51); Absolute Neutrophil Count 6.9 X10^3/uL (2.0-7.7); Basophil# 0.05 X10^3/uL; Basophil% 0.5 % (0-1); Eosinophil# 0.21 X10^3/uL; Eosinophils% 2.3 % (0-5); Hematocrit 36.8 % (40-54); Hemoglobin 12.5 g/dL (13.0-16.5); Lymphocyte # 1.55 X10^3/ul (0.83-4.51); Lymphocyte % 16.8 % (19-41); Mean Corpuscular Hgb 29.7 pg (27.0-32.0); Mean Corpuscular Volume 87.4 fL (80-94); Mean Platelet Vol. 8.9 fl (6.2-12.0); Monocyte# 0.49 X10^3/uL; Monocyte% 5.3 % (0-10); NRBC Flagged by Analyzer 0 % (0-5); Neutrophil # 6.92 X10^3/uL (2.7-7.7); Neutrophil % 74.8 % (47-70); Platelet Count 201 K/mm3 (150-450); RBC Distribution Width CV 13.3 % (11.6-14.6); RBC Distribution Width SD 42.2 fl (35.1-43.9); Red Blood Count 4.21 M/mm3 (4.6-6.2); White Blood Count 9.3 K/mm3 (4.4-11.0)
[2021-05-09 11:49] LABS: White Blood Cells 0-5 SEEN /hpf (0-5)
[2021-05-09 12:02] LABS: AST(SGOT) 17 U/L (15-37); Alanine Aminotransfer ALT/SGPT 21 U/L (16-61); Albumin, Serum 4.3 g/dL (3.2-5.0); Alkaline Phosphatase 52 U/L (45-117); Anion Gap 8 (5-15); BUN 16 mg/dL (7-18); BUN/Creat Ratio 9.8 RATIO (10-20); Calcium,Total 9.9 mg/dL (8.5-10.1); Chloride 104 mmol/L (98-107); Creatinine, Serum 1.63 mg/dL (0.70-1.30); EST Glomerular Filtration Rate 46 mL/min (>60); Est Glom Filt Rate - Afr Amer 55 mL/min (>60); Estimated Creatinine Clearance 56.16 ml/min; Globulin 4.1 g/dL (2.2-4.2); Glucose 97 mg/dL (74-106); Protein, Total 8.4 g/dL (6.4-8.2); Sodium Level 137 mmol/L (136-145)
[2021-05-09] MEDS: Potassium Chloride Oral Tablet 20 MEQ 40 MEQ PO (12:26)
[2021-05-09 12:31] VITALS: BP 146/70; PULSE 65; RESP 16; O2SAT 97
== END 2021-05-09 12:32 | disposition home or self-care (01) ==
LOC: ED 11:59
PROVIDERS: Emergency Provider Emergency Medicine; PCP Family Medicine
DX: R53.81 Other malaise (principal); E87.6 Hypokalemia; I25.10 Atherosclerotic heart disease of native coronary artery without angina pectoris; I11.0 Hypertensive heart disease with heart failure; I50.9 Heart failure, unspecified; E78.00 Pure hypercholesterolemia, unspecified; Z79.899 Other long term (current) drug therapy; F17.210 Nicotine dependence, cigarettes, uncomplicated
CPT/HCPCS: 71045; 80053; 81001; 85025; 93005; 96360; 99285; J7040; A4216